=== PATIENT | female | born 1970 | race Caucasian/White ===

== ENCOUNTER 2023-11-25 05:21 | Inpatient (IN) ==
[2023-11-25] MEDS ORDERED: HYDROmorphone INJ 1 MG/ML SYRINGE IV STA ×4 (05:50→08:43)
[2023-11-25] MEDS ORDERED: ONDANSETRON INJ 2 MG/ML 2 ML VIAL IV STA ×2 (05:50→07:14)
[2023-11-25] MEDS ORDERED: KETOROLAC 30 MG/ML VIAL IV ONE (05:50)
[2023-11-25 06:10] LABS: Basophils # (auto) 0.03 K/uL (0.00-0.20); Basophils % (auto) 0.2 %; Eosinophils # (auto) 0.04 K/uL (0.00-0.50); Eosinophils % (auto) 0.3 %; Hematocrit (blood only) 38.7 % (37.0-47.0); Hemoglobin 12.5 g/dl (12.0-16.0); Immature Granulocytes # (auto) 0.08 K/uL (0.01-0.20); Immature Granulocytes % (auto) 0.5 %; Lymphocytes # (auto) 2.16 K/uL (1.20-3.40); Lymphocytes % (auto) 14.3 %; Mean Corpuscular Hemoglobin 28.3 pg (25.0-34.0); Mean Corpuscular Hgb Conc 32.3 g/dL (32.0-36.0); Mean Corpuscular Volume 87.8 fL (80.0-100.0); Mean Platelet Volume 9.4 fL (9.4-12.4); Monocytes # (auto) 0.81 K/uL (0.11-0.59); Monocytes % (auto) 5.3 %; Neutrophils # (auto) 12.03 K/uL (1.40-6.50); Neutrophils % (auto) 79.4 %; Platelet Count 291 K/uL (130-400); RDW Coefficient of Variation 12.3 % (11.5-14.5); RDW Standard Deviation 39.8 fL (36.4-46.3); Red Blood Count 4.41 M/uL (4.20-5.40); White Blood Count 15.15 K/ul (4.8-10.8)
[2023-11-25 06:27] LABS: Albumin Level 4.5 gm/dl (3.4-5.0); BUN Creatinine Ratio 14.3 (10-20); Bilirubin Direct 0.1 mg/dl (0-0.2); Bilirubin,Total 0.6 mg/dl (0.2-1.0); Calcium 9.9 mg/dl (8.6-10.3); Creatinine Clr Calc Pharmacy 93.6 ml/min; Est GFR (African American) 76.9 ml/min; Est GFR (Non-African American) 66.3 ml/min; Magnesium 1.6 mg/dl (1.7-2.4); Potassium 4.2 mmol/L (3.5-5.1); Total Protein 7.5 gm/dl (6.0-8.3)
--- OUTSIDE RECORDS SUMMARY | 2023-11-25 06:29 | External Medical Summary | Continuity of Care Document ---
Author Name [facility] [place] Address [address] [place] [address] Phone [phone] [facility], Address [address] [place] [address] Phone [phone] Social History Type Date Description Comments Sex Unknown Tobacco Use Reviewed: 06/09/23 Never Smoked Cigarette s Tobacco Use Reviewed: 06/09/23 Never Smoked Cigars Tobacco Use Reviewed: 06/09/23 Never Smoked A Pipe Smoking Status Reviewed: 06/09/23 Never Smoked A Pipe Smokeless Tobacco 06/09/2023 Never Used Smokeless To bacco Allergies and adverse reactions Active Allergies Criticality Reaction | Severity Comments Date Penicillin Unable to assess criticality Urticaria 01/28/2018 Amoxicillin Unable to assess criticality Urticaria 01/28/2018 Medications Active Medications SIG Qnty Indications Ordering Provider Date Tpdzpraqzh357yt Capsules 1 by mouth three times a day for pain 270nubia sEposito MD 09/07/2023 [address]pi Tablets DR Take 1 Tablet By Mouth Twice Daily 180rayo Esposito MD 01/28/2018 Metoprolol Mbiizemd19af Tablets Take 1 Tablet By Mouth Twice Daily 180rayo Esposito MD 09/28/2017 History Medications Hnzgafvevy615gt Capsules 1 by mouth thre e times a day for pain 270nubia Esposito MD 07/06/2023 - 09/07/2023 Ghezdbawgt28qp Tablets two tablets x 5 days then one tablet daily x 5 days 15rayo Esposito MD 06/09/2023 - 06/19/2023 Medications Administered in Office Medication SIG Qnty Indications Ordering Provider Date Injection Kenalog 10 MG [facility] [id number] Amanda Ching 06/09/2023 Immunizations CPT Code Status Date Vaccine Lot # [id number] Refused 06/09/2023 Influenza Virus Vaccine, Quadrivalent (Cciiv4), Derived From Cell 96497 Refused 06/09/2023 Influenza Virus Vaccine, Quadrivalent (Cciiv4), Derived From Cell 25157 Refused 06/09/2023 Shingrix 13965 Refused 04/16/2022 Moderna Sars-Co v-2 (Cov-19) vacc,100 mcg/ 0.5 mL 12Y+EMR Doc Only 52644 Refused 04/16/2022 Influenza Virus Vaccine, Quadrivalent (Cciiv4), Derived From Cell 21470 Refused 10/06/2018 Influenza Vacci ne Quadrivalent Preser/Antibiotic Free Im Use Vital Signs Date Vital Result Comment 06/09/2023 2:01pm BP Systolic 120 mmHg BP Diastolic 82 mmHg Body Temperature 97.3 F Heart Rate 86 /min Weight 272.00 lb Weight 123.379 kg Height 66 inches 5'6" BMI (Body Mass Index) 43.9 kg/m2 O2 % BldC Oximetry 98 % [place] Body Weight 130 lb 12/29/2022 2:43pm BP Systolic 122 mmHg BP Diastolic 82 mmHg Body Temperature 97.5 F Heart Rate 97 /min Respiratory Rate 14 /min Weight 277.00 lb Weight 125.647 kg Height 66 inches 5'6" BMI (Body Mass Index) 44.7 kg/m2 O2 % BldC Oximetry 98 % [place] Body Weight 130 lb Results Test Acquired Date Facility Test Result H/L Range N ote CBC W/Diff 09/17/2023 [facility] Lab. [address] [place] [address] [phone] WBC 6.8 10^3/M3 3.1-9.2 RBC 4.21 10^6/M3 3.70-5.50 HGB 12.7 GR/DL 11.5-16.1 HCT 38.9 % 34.5-47.8 MCV 92.4 CUMICR 82.6-95.8 MCH 30.1 PICOGR 27.9-32.9 MCHC 32.6 % 32.6-35.4 RDW 14.9 % High 11.4-14.6 PLT 292 10^3/M3 140-350 MPV 8.4 CUMICR 7.0-10.6 %Neut 57.3 % 40.0-75.0 %Lymph 38.6 % 17.0-45.0 %[place] 2.5 % 1.0-11.0 %Eos 1.2 % 0.0-6.0 %Baso 0.4 % 0.0-2.0 #Neut 3.9 10^3/M3 1.5-8.0 #Lymph 2.6 10^3/M3 0.8-3.2 #Porter 0.2 10^3/M3 0.0-0.8 #Eos 0.1 10^3/m3 0.0-0.4 #Baso 0.0 10^3/m3 0.0-0.2 Comp. Met 09/17/2023 [facility] Lab. [address] [place] [address] [phone] Glucose 145 mg/dL High 70-110 1 BUN 19 mg/dL 6-25 Creatinine 0.8 mg/dL 0.5-1.2 Sodium 142 mEq/L 135-145 Potassium 3.9 mEq/L 3.5-5.0 Chloride 105 mEq/L 95-107 Co-2 26 mEq/L 24-31 Alk Phos 58 IU/L 43-122 Alt(SGPT) 24 IU/L 10-40 Ast(Sgot) 16 IU/L 3-42 T.Bilirubin 0.4 mg/dL 0.1-1.3 Calcium 9.4 mg/dL 8.5-10.6 Tot.Protein 6.6 g/dL 5.8-8.0 Albumin 4.2 g/dL 3.0-5.2 Globulin 2.4 g/dL 2.0-3.4 GFR 80 ML/MIN/1.73SQM >60 PT Inr DRAGLINE OILER 09/17/2023 [facility] Lab. [address] [place] [address] [phone] PT 13.1 SEC High 10.0-12.4 2 Inr 1.2 RATIO Hba1c 09/17/2023 [facility] Lab. [address] [place] [address] [phone] A1c 5.90 % 4.70-6.50 3 1 REPORT FAXED TO DOCT OR, REQUESTED ON REQUISITION.09/18/23 lm 2 NORMAL PATIENT CONTR OL IS 11.0 INR REFERENCE RANGES: PROPHYLAXIS IN CARDIC DISEASE 2.0-3.0 PROSTHETIC HEART VALVE 3.0-4.5 RECURRENT EMBOLISM 3.0-4.5 PROPHLAXIS IN HIGH RISK SURGERY 2.0-2.5 TREATMENT IN PULMONARY EMBOLIS 2.0-3.0 3 MEAN GLUCOSE IN mg/d L/A1c% POOR CONTROL FAIR CONTROL GOOD CONTROL EXCELLENT CONTROL 360-14 210-9 180-8 120-6 330-13 150-7 90-5 300-12 270-11 240-10 Procedures Date Code Description Status 09/17/2023 02645 Electrocardiogram Complete C ompleted 09/17/2023 84141 Venipuncture Routine Complet ed 06/09/2023 J3301 Injection Kenalog 10 MG [facility] [id number] Completed 06/09/2023 91616 Inject/Drain Arthrocentesis Major Joint/Bursa Completed Medical Devices Description No Information Available Encounters Type Date Location Provider Dx Diagnosis Office Visit 06/09/2023 2:30p [place] Sj Milner PA-C M70.61 Trochanteric bursitis, right hip M51.16 Intervertebral disc disorders w radiculopathy, lumbar region Assessments Date Code Description Provider 09/17/2023 Z01.818 Encounter for ot her preprocedural examination Rubina Esposito MD 09/17/2023 Z01.818 Encounter for ot her preprocedural examination [facility] [place] 06/09/2023 M70.61 Trochanteric bursitis, right hip Sj Milner PA-C 06/09/2023 M51.16 Intervertebral d isc disorders with radiculopathy, lumbar region Sj Milner PA-C Plan of Treatment Future Appointment(s):* 12/07/2023 8:30 am - Sj Milner PA-C at [place] 06/09/2023 - Sj Milner PA-C* M70.61 Trochanteric bursitis, right hip* Comments:* Consider imaging Continue conservative treatment Complete corticosteroid taper Continue NSAIDs as needed * M51.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
--- OUTSIDE RECORDS SUMMARY | 2023-11-25 06:29 | External Medical Summary | Continuity of Care Document ---
Author Name DENISHA BARBER Address [address] [place] [address] Phone [phone] [facility] Address [address] [place] [address] Phone [phone] Social History Type Date Description Comments Sex [...] Medications SIG Qnty Indications Ordering Provider Date Fcnxgsmuex43te Tablets two tablets x 5 days then one tablet daily x 5 days 15tabs Rubina Esposito MD 06/09/2023 - 06/19/2023 [address]lof[address]kktbj02mt Tablets DR Take 1 Tablet By Mouth Twice Daily 180tabs Rubina Esposito MD 01/28/2018 Metoprolol Uhwnswlz88kc Tablets Take 1 Tablet By Mouth Twice Daily 180tabs Rubina Esposito MD 09/28/2017 Medications Administered in Office Medication SIG Qnty Indications Ordering Provider Date Injection Kenalog 10 MG [facility] [id number] Amanda Ching 06/09/2023 Immunizations CPT Code Status Date Vaccine Lot # [id number] Refused 06/09/2023 Influenza Virus Vaccine, Quadrivalent (Cciiv4), Derived From Cell 27214 Refused 06/09/2023 Influenza Virus Vaccine, Quadrivalent (Cciiv4), Derived From Cell 77388 Refused 06/09/2023 Shingrix 44471 Refused 04/16/2022 Moderna Sars-Co v-2 (Covid-19) vaccine, 100 mcg/ 0.5 mL 12Y+ 96148 Refused 04/16/2022 Influenza Virus Vaccine, Quadrivalent (Cciiv4), Derived From Cell 93102 Refused 10/06/2018 Influenza Vacci ne Quadrivalent Preser/Antibiotic Free Im Use Vital Signs Date Vital Result Comment 06/09/2023 2:01pm BP Systolic 120 mmHg BP Diastolic 82 mmHg Body Temperature 97.3 F Heart Rate 86 /min Weight 272.00 lb Weight 123.379 kg Height 66 inches 5'6" BMI (Body Mass Index) 43.9 kg/m2 O2 % BldC Oximetry 98 % [place] Body Weight 130 lb 12/29/2022 2:43pm BP Systolic 122 mmHg BP Diastolic 82 mmHg Body Temperature 97.5 F Heart Rate 97 /min Respiratory Rate 14 /min Weight 277.00 lb Weight 125.647 kg Height 66 inches 5'6" BMI (Body Mass Index) 44.7 kg/m2 O2 % BldC Oximetry 98 % [place] Body Weight 130 lb Procedures Date Code Description Status 06/09/2023 J3301 Injection Kenalog 10 MG [facility] [id number] Completed 06/09/2023 36046 Inject/Drain Arthrocentesis Major Joint/Bursa Completed 12/29/2022 27559 Remove Skin Tags Up To 15 Co mpleted Medical Devices Description No Information Available Encounters Type Date Location Provider Dx Diagnosis Office Visit 06/09/2023 2:30p [place] Denisha Barber PA-C M70.61 Trochanteric bursitis, right hip M51.16 Intervertebral disc disorders w radiculopathy, lumbar region Assessments Date Code Description Provider 06/09/2023 M70.61 Trochanteric bursitis, right hip Denisha Barber PA-C 06/09/2023 M51.16 Intervertebral d isc disorders with radiculopathy, lumbar region Denisha Barber PA-C 12/29/2022 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
--- OUTSIDE RECORDS SUMMARY | 2023-11-25 06:29 | External Medical Summary | Continuity of Care Document ---
Author Name [facility] [place] Address [address] [place] [address] Phone [phone] [facility], Address [address] [place] [address] Phone [phone] Social History Type Date Description Comments Sex [...] Medications SIG Qnty Indications Ordering Provider Date Znqmmbpkle236ei Capsules 1 by mouth three times a day for pain 270nubia Esposito MD 09/07/2023 Diclofenac Npjrzl81wv Tablets DR Take 1 Tablet By Mouth Twice Daily 180rayo Esposito MD 01/28/2018 Metoprolol Usbkbpcb30af Tablets Take 1 Tablet By Mouth Twice Daily 180rayo Esposito MD 09/28/2017 History Medications Mielnnwork436je Capsules 1 by mouth thre e times a day for pain 270nubia Esposito MD 07/06/2023 - 09/07/2023 Vohnwcaous91da Tablets two tablets x 5 days then one tablet daily x 5 days 15rayo Esposito MD 06/09/2023 - 06/19/2023 Medications Administered in Office Medication SIG Qnty Indications Ordering Provider Date Injection Kenalog 10 MG [facility] [id number] Amanda Ching 06/09/2023 Immunizations CPT Code Status Date Vaccine Lot # 24691 Refused 06/09/2023 Influenza Virus Vaccine, Quadrivalent (Cciiv4), Derived From Cell 04205 Refused 06/09/2023 Influenza Virus Vaccine, Quadrivalent (Cciiv4), Derived From Cell 83956 Refused 06/09/2023 Shingrix 21857 Refused 04/16/2022 Moderna Sars-Co v-2 (Cov-19) vacc,100 mcg/ 0.5 mL 12Y+EMR Doc Only 14558 Refused 04/16/2022 Influenza Virus Vaccine, Quadrivalent (Cciiv4), Derived From Cell 56542 Refused 10/06/2018 Influenza Vacci ne Quadrivalent Preser/Antibiotic Free Im Use Vital Signs Date Vital Result Comment 06/09/2023 2:01pm BP Systolic 120 mmHg BP Diastolic 82 mmHg Body Temperature 97.3 F Heart Rate 86 /min Weight 272.00 lb Weight 123.379 kg Height 66 inches 5'6" BMI (Body Mass Index) 43.9 kg/m2 O2 % BldC Oximetry 98 % [place] Body Weight 130 lb 12/29/2022 2:43pm BP Systolic 122 mmHg BP Diastolic 82 mmHg Body Temperature 97.5 F Heart Rate 97 /min Respiratory Rate 14 /min Weight 277.00 lb Weight 125.647 kg Height 66 inches 5'6" BMI (Body Mass Index) 44.7 kg/m2 O2 % BldC Oximetry 98 % [place] Body Weight 130 lb Results Test Acquired Date Facility Test Result H/L Range N ote CBC W/Diff 09/17/2023 [facility] Lab. [address] [place] [address] [phone] WBC 6.8 10^3/M3 3.1-9.2 RBC 4.21 10^6/M3 3.70-5.50 HGB 12.7 GR/DL 11.5-16.1 HCT 38.9 % 34.5-47.8 MCV 92.4 CUMICR 82.6-95.8 MCH 30.1 PICOGR 27.9-32.9 MCHC 32.6 % 32.6-35.4 RDW 14.9 % High 11.4-14.6 PLT 292 10^3/M3 140-350 MPV 8.4 CUMICR 7.0-10.6 %Neut 57.3 % 40.0-75.0 %Lymph 38.6 % 17.0-45.0 %[place] 2.5 % 1.0-11.0 %Eos 1.2 % 0.0-6.0 %Baso 0.4 % 0.0-2.0 #Neut 3.9 10^3/M3 1.5-8.0 #Lymph 2.6 10^3/M3 0.8-3.2 #[place] 0.2 10^3/M3 0.0-0.8 #Eos 0.1 10^3/m3 0.0-0.4 #Baso 0.0 10^3/m3 0.0-0.2 Comp. Met 09/17/2023 [facility] Lab. [address] [place] [address] [phone] Glucose 145 mg/dL High 70-110 1 BUN [...] 2.0-3.4 GFR 80 ML/MIN/1.73SQM >60 PT Inr PIZZA DELIVERY 09/17/2023 [facility] Lab. [address] [place] [address] [phone] PT 13.1 SEC High 10.0-12.4 2 Inr 1.2 RATIO Hba1c 09/17/2023 [facility] Lab. [address] [place] [address] [phone] A1c 5.90 % 4.70-6.50 3 1 REPORT [...] 240-10 Procedures Date Code Description Status 09/17/2023 92689 Electrocardiogram Complete C ompleted 09/17/2023 72024 Venipuncture Routine Complet ed 06/09/2023 J3301 Injection Kenalog 10 MG [facility] [id number] Completed 06/09/2023 87243 Inject/Drain Arthrocentesis Major Joint/Bursa Completed Medical Devices Description No Information Available Encounters Type Date Location Provider Dx Diagnosis Office Visit 06/09/2023 2:30p [place] Sj Milner PA-C M70.61 Trochanteric bursitis, right hip M51.16 Intervertebral disc disorders w radiculopathy, lumbar region Assessments Date Code Description Provider 09/17/2023 Z01.818 Encounter for ot her preprocedural examination Rubina Esposito MD 09/17/2023 Z01.818 Encounter for ot her preprocedural examination [facility] [place] 06/09/2023 M70.61 Trochanteric bursitis, right hip Sj Milner PA-C 06/09/2023 M51.16 Intervertebral d isc disorders with radiculopathy, lumbar region Sj Milner PA-C Plan of Treatment Future Appointment(s):* 12/07/2023 8:30 am - Sj Milner PA-C at [place] 06/09/2023 - Sj Milner PA-C* M70.61 Trochanteric [...]
--- OUTSIDE RECORDS SUMMARY | 2023-11-25 06:29 | External Medical Summary | Continuity of Care Document ---
Author Name [facility] [place] Address [address] [place] [address] Phone [phone] [facility], Address [address] [place] [address] Phone [phone] Social History Type Date Description Comments Sex [...] Medications SIG Qnty Indications Ordering Provider Date Bxuylvwrrf027la Capsules 1 by mouth three times a day for pain 270nubia Esposito MD 09/07/[address] Take 1 Tablet By Mouth Twice Daily 180rayo Esposito MD 01/28/2018 Metoprolol Rloqpggx48ty Tablets Take 1 Tablet By Mouth Twice Daily 180rayo Esposito MD 09/28/2017 History Medications Zckxszcpfj924yy Capsules 1 by mouth thre e times a day for pain 270nubia Esposito MD 07/06/2023 - 09/07/2023 Xvjqunefxc46bu Tablets two tablets x 5 days then one tablet daily x 5 days 15rayo Esposito MD 06/09/2023 - 06/19/2023 Medications Administered in Office Medication SIG Qnty Indications Ordering Provider Date Injection Kenalog 10 MG [facility] [id number] Amanda Ching 06/09/2023 Immunizations CPT Code Status Date Vaccine Lot # 71058 Refused 06/09/2023 Influenza Virus Vaccine, Quadrivalent (Cciiv4), Derived From Cell 48974 Refused 06/09/2023 Influenza Virus Vaccine, Quadrivalent (Cciiv4), Derived From Cell 46625 Refused 06/09/2023 Shingrix 52519 Refused 04/16/2022 Moderna Sars-Co v-2 (Cov-19) vacc,100 mcg/ 0.5 mL 12Y+EMR Doc Only 13792 Refused 04/16/2022 Influenza Virus Vaccine, Quadrivalent (Cciiv4), Derived From Cell 68037 Refused 10/06/2018 Influenza Vacci ne Quadrivalent Preser/Antibiotic Free Im Use Vital Signs Date Vital Result Comment 06/09/2023 2:01pm BP Systolic 120 mmHg BP Diastolic 82 mmHg Body Temperature 97.3 F Heart Rate 86 /min Weight 272.00 lb Weight 123.379 kg Height 66 inches 5'6" BMI (Body Mass Index) 43.9 kg/m2 O2 % BldC Oximetry 98 % [place] Body Weight 130 lb 12/29/2022 2:43pm BP Systolic 122 mmHg BP Diastolic 82 mmHg Body Temperature 97.5 F Heart Rate 97 /min Respiratory Rate 14 /min Weight 277.00 lb Weight 125.647 kg Height 66 inches 5'6" BMI (Body Mass Index) 44.7 kg/m2 O2 % BldC Oximetry 98 % [place] Body Weight 130 lb Procedures Date Code Description Status 09/17/2023 33141 Electrocardiogram Complete C ompleted 09/17/2023 44889 Venipuncture Routine Complet ed 06/09/2023 J3301 Injection Kenalog 10 MG [place] [id number] Completed 06/09/2023 04292 Inject/Drain Arthrocentesis Major Joint/Bursa Completed Medical Devices Description No Information Available Encounters Type Date Location Provider Dx Diagnosis Office Visit 06/09/2023 2:30p [place] PA-C M70.61 Trochanteric bursitis, right hip M51.16 Intervertebral disc disorders w radiculopathy, lumbar region Assessments Date Code Description Provider 09/17/2023 Z01.818 Encounter for ot her preprocedural examination [facility] - [place] 06/09/2023 M70.61 Trochanteric bursitis, right hip Sj Milner PA-C 06/09/2023 M51.16 Intervertebral d isc disorders with radiculopathy, lumbar region Sj Milner PA-C Plan of Treatment Future Appointment(s):* 12/07/2023 8:30 am - Sj Milner PA-C at [place] 06/09/2023 - Sj Milner PA-C* M70.61 Trochanteric [...]
--- OUTSIDE RECORDS SUMMARY | 2023-11-25 06:29 | External Medical Summary | Continuity of Care Document ---
Author Name DENISHA BARBER Address [address] [place] [address] Phone [phone] [facility] Address [address] [place] [address] Phone [phone] Social History Type Date Description Comments Sex [...] Medications SIG Qnty Indications Ordering Provider Date Fsavxspqdj83nh Tablets two tablets x 5 days then one tablet daily x 5 days 15tabs Rubina Esposito MD 06/09/2023 - 06/19/2023 [address]uy Tablets DR Take 1 Tablet By Mouth Twice Daily 180tabs Rubina Esposito MD 01/28/2018 Metoprolol Rnjewzjb69ia Tablets Take 1 Tablet By Mouth Twice Daily 180tabs Rubina Esposito MD 09/28/2017 Medications Administered in Office Medication SIG Qnty Indications Ordering Provider Date Injection Kenalog 10 MG [facility] [id number] Amanda Ching 06/09/2023 Immunizations CPT Code Status Date Vaccine Lot # 16675 Refused 06/09/2023 Influenza Virus Vaccine, Quadrivalent (Cciiv4), Derived From Cell 25220 Refused 06/09/2023 Influenza Virus Vaccine, Quadrivalent (Cciiv4), Derived From Cell 12436 Refused 06/09/2023 Shingrix 56541 Refused 04/16/2022 Moderna Sars-Co v-2 (Covid-19) vaccine, 100 mcg/ 0.5 mL 12Y+ 66633 Refused 04/16/2022 Influenza Virus Vaccine, Quadrivalent (Cciiv4), Derived From Cell 39608 Refused 10/06/2018 Influenza Vacci ne Quadrivalent Preser/Antibiotic Free Im Use Vital Signs Date Vital Result Comment 06/09/2023 2:01pm BP Systolic 120 mmHg BP Diastolic 82 mmHg Body Temperature 97.3 F Heart Rate 86 /min Weight 272.00 lb Weight 123.379 kg Height 66 inches 5'6" BMI (Body Mass Index) 43.9 kg/m2 O2 % BldC Oximetry 98 % [place] Body Weight 130 lb 12/29/2022 2:43pm BP Systolic 122 mmHg BP Diastolic 82 mmHg Body Temperature 97.5 F Heart Rate 97 /min Respiratory Rate 14 /min Weight 277.00 lb Weight 125.647 kg Height 66 inches 5'6" BMI (Body Mass Index) 44.7 kg/m2 O2 % BldC Oximetry 98 % [place] Body Weight 130 lb Procedures Date Code Description Status 06/09/2023 J3301 Injection Kenalog 10 MG [facility] 77017526084 Completed 06/09/2023 01026 Inject/Drain Arthrocentesis Major Joint/Bursa Completed 12/29/2022 69909 Remove Skin Tags Up To 15 Co mpleted Medical Devices Description No Information Available Encounters Type Date Location Provider Dx Diagnosis Office Visit 06/09/2023 2:30p [place] Denisha Barber PA-C M70.61 Trochanteric bursitis, right [...] 8:30 am - Denisha Barber PA-C at [place] 06/09/2023 - Denisha Barber PA-C* M70.61 Trochanteric [...]
--- OUTSIDE RECORDS SUMMARY | 2023-11-25 06:29 | External Medical Summary | Continuity of Care Document ---
Author Name [facility] - [place] Address [address] [place] [address] Phone [phone] [facility], Address [address] [place] [address] Phone [phone] Social History Type Date Description Comments Sex [...] Medications SIG Qnty Indications Ordering Provider Date Qamggnktpq439uh Capsules 1 by mouth three times a day for pain 270nubia Esposito MD 09/07/2023 [address]ayg57qd Table[address] DR Take 1 Tablet By Mouth Twice Daily 180rayo Esposito MD 01/28/2018 Metoprolol Hcojgidi43tm Tablets Take 1 Tablet By Mouth Twice Daily 180rayo Esposito MD 09/28/2017 History Medications Yrvpuqyzpi453ph Capsules 1 by mouth thre e times a day for pain 270nubia Esposito MD 07/06/2023 - 09/07/2023 Gqmlfpytve45mo Tablets two tablets x 5 days then one tablet daily x 5 days 15rayo Esposito MD 06/09/2023 - 06/19/2023 Medications Administered in Office Medication SIG Qnty Indications Ordering Provider Date Injection Kenalog 10 MG [facility] [id number] Amanda Ching 06/09/2023 Immunizations CPT Code Status Date Vaccine Lot # 38217 Refused 06/09/2023 Influenza Virus Vaccine, Quadrivalent (Cciiv4), Derived From Cell 95977 Refused 06/09/2023 Influenza Virus Vaccine, Quadrivalent (Cciiv4), Derived From Cell 73088 Refused 06/09/2023 Shingrix 74273 Refused 04/16/2022 Moderna Sars-Co v-2 (Cov-19) vacc,100 mcg/ 0.5 mL 12Y+EMR Doc Only 77585 Refused 04/16/2022 Influenza Virus Vaccine, Quadrivalent (Cciiv4), Derived From Cell 97818 Refused 10/06/2018 Influenza Vacci ne Quadrivalent Preser/Antibiotic Free Im Use Vital Signs Date Vital Result Comment 06/09/2023 2:01pm BP Systolic 120 mmHg BP Diastolic 82 mmHg Body Temperature 97.3 F Heart Rate 86 /min Weight 272.00 lb Weight 123.379 kg Height 66 inches 5'6" BMI (Body Mass Index) 43.9 kg/m2 O2 % BldC Oximetry 98 % [place] Body Weight 130 lb 12/29/2022 2:43pm BP Systolic 122 mmHg BP Diastolic 82 mmHg Body Temperature 97.5 F Heart Rate 97 /min Respiratory Rate 14 /min Weight 277.00 lb Weight 125.647 kg Height 66 inches 5'6" BMI (Body Mass Index) 44.7 kg/m2 O2 % BldC Oximetry 98 % [place] Body Weight 130 lb Procedures Date Code Description Status 09/17/2023 92368 Electrocardiogram Complete C ompleted 09/17/2023 06921 Venipuncture Routine Complet ed 06/09/2023 J3301 Injection Kenalog 10 MG ND [id number] Completed 06/09/2023 55992 Inject/Drain Arthrocentesis Major Joint/Bursa Completed Medical Devices Description No Information Available Encounters Type Date Location Provider Dx Diagnosis Office Visit 06/09/2023 2:30p [place] PA-C M70.61 Trochanteric bursitis, right hip M51.16 Intervertebral disc disorders w radiculopathy, lumbar region Assessments Date Code Description Provider 09/17/2023 Z01.818 Encounter for ot her preprocedural examination [facility] - [place] 06/09/2023 M70.61 Trochanteric bursitis, right hip Sj Milner PA-C 06/09/2023 M51.16 Intervertebral d isc disorders with radiculopathy, lumbar region Sj Milner PA-C Plan of Treatment Future Appointment(s):* 12/07/2023 8:30 am - Sj Milner PA-C at [place] 06/09/2023 - Sj Milner PA-C* M70.61 Trochanteric [...]
--- OUTSIDE RECORDS SUMMARY | 2023-11-25 06:29 | External Medical Summary | Continuity of Care Document ---
Author Name DENISHA BARBER Address [address] [place] [address] Phone [phone] [facility] Address [address] [place] [address] Phone [phone] Social History Type Date Description Comments Sex [...] Medications SIG Qnty Indications Ordering Provider Date Ehrmhddiou20iv Tablets two tablets x 5 days then one tablet daily x 5 days 15tabs Rubina Esposito MD 06/09/2023 - 06/19/[address] Take 1 Tablet By Mouth Twice Daily 180tabs Rubina Esposito MD 01/28/2018 Metoprolol Pkutbvqu68hv Tablets Take 1 Tablet By Mouth Twice Daily 180tabs Rubina Esposito MD 09/28/2017 Medications Administered in Office Medication SIG Qnty Indications Ordering Provider Date Injection Kenalog 10 MG [facility] [id number] Amanda Ching 06/09/2023 Immunizations CPT Code Status Date Vaccine Lot # [id number] Refused 06/09/2023 Influenza Virus Vaccine, Quadrivalent (Cciiv4), Derived From Cell [id number] Refused 06/09/2023 Influenza Virus Vaccine, Quadrivalent (Cciiv4), Derived From Cell 71457 Refused 06/09/2023 Shingrix 05602 Refused 04/16/2022 Moderna Sars-Co v-2 (Covid-19) vaccine, 100 mcg/ 0.5 mL 12Y+ [id number] Refused 04/16/2022 Influenza Virus Vaccine, Quadrivalent (Cciiv4), Derived From Cell 67869 Refused 10/06/2018 Influenza Vacci ne Quadrivalent Preser/Antibiotic Free Im Use Vital Signs Date Vital Result Comment 06/09/2023 2:01pm BP Systolic 120 mmHg BP Diastolic 82 mmHg Body Temperature 97.3 F Heart Rate 86 /min Weight 272.00 lb Weight 123.379 kg Height 66 inches 5'6" BMI (Body Mass Index) 43.9 kg/m2 O2 % BldC Oximetry 98 % [place] Body Weight 130 lb 12/29/2022 2:43pm BP Systolic 122 mmHg BP Diastolic 82 mmHg Body Temperature 97.5 F Heart Rate 97 /min Respiratory Rate 14 /min Weight 277.00 lb Weight 125.647 kg Height 66 inches 5'6" BMI (Body Mass Index) 44.7 kg/m2 O2 % BldC Oximetry 98 % [place] Body Weight 130 lb Procedures Date Code Description Status 06/09/2023 J3301 Injection Kenalog 10 MG [facility] [id number] Completed 06/09/2023 11108 Inject/Drain Arthrocentesis Major Joint/Bursa Completed 12/29/2022 68530 Remove Skin Tags Up To 15 Co mpleted Medical Devices Description No Information Available Encounters Type Date Location Provider Dx Diagnosis Office Visit 06/09/2023 2:30p [place] Denisha Barber PA-C M70.61 Trochanteric bursitis, right [...] 8:30 am - Denisha Barber PA-C at [place] 06/09/2023 - Denisha Barber PA-C* M70.61 Trochanteric [...]
--- OUTSIDE RECORDS SUMMARY | 2023-11-25 06:29 | External Medical Summary | Continuity of Care Document ---
Author Name DENISHA BARBER Address [address] [place] [address] Phone [phone] [facility] Address [address] [place] [address] Phone [phone] Social History Type Date Description Comments Sex [...] Medications SIG Qnty Indications Ordering Provider Date Ltjjhwwyjn79cv Tablets two tablets x 5 days then one tablet daily x 5 days 15tabs Rubina Esposito MD 06/09/2023 - 06/19/[address] Take 1 Tablet By Mouth Twice Daily 180tabs Rubina Esposito MD 01/28/2018 Metoprolol Pstlvowa78cy Tablets Take 1 Tablet By Mouth Twice Daily 180tabs Rubina Esposito MD 09/28/2017 Medications Administered in Office Medication SIG Qnty Indications Ordering Provider Date Injection Kenalog 10 MG [facility] [id number] Amanda Ching 06/09/2023 Immunizations CPT Code Status Date Vaccine Lot # [id number] Refused 06/09/2023 Influenza Virus Vaccine, Quadrivalent (Cciiv4), Derived From Cell 10459 Refused 06/09/2023 Influenza Virus Vaccine, Quadrivalent (Cciiv4), Derived From Cell 57319 Refused 06/09/2023 Shingrix 91458 Refused 04/16/2022 Moderna Sars-Co v-2 (Covid-19) vaccine, 100 mcg/ 0.5 mL 12Y+ [id number] Refused 04/16/2022 Influenza Virus Vaccine, Quadrivalent (Cciiv4), Derived From Cell 78581 Refused 10/06/2018 Influenza Vacci ne Quadrivalent Preser/Antibiotic Free Im Use Vital Signs Date Vital Result Comment 06/09/2023 2:01pm BP Systolic 120 mmHg BP Diastolic 82 mmHg Body Temperature 97.3 F Heart Rate 86 /min Weight 272.00 lb Weight 123.379 kg Height 66 inches 5'6" BMI (Body Mass Index) 43.9 kg/m2 O2 % BldC Oximetry 98 % [place] Body Weight 130 lb 12/29/2022 2:43pm BP Systolic 122 mmHg BP Diastolic 82 mmHg Body Temperature 97.5 F Heart Rate 97 /min Respiratory Rate 14 /min Weight 277.00 lb Weight 125.647 kg Height 66 inches 5'6" BMI (Body Mass Index) 44.7 kg/m2 O2 % BldC Oximetry 98 % [place] Body Weight 130 lb Procedures Date Code Description Status 06/09/2023 J3301 Injection Kenalog 10 MG [facility] [id number] Completed 06/09/2023 62869 Inject/Drain Arthrocentesis Major Joint/Bursa Completed 12/29/2022 92422 Remove Skin Tags Up To 15 Co mpleted Medical Devices Description No Information Available Encounters Type Date Location Provider Dx Diagnosis Office Visit 06/09/2023 2:30p [place] Denisha Barber PA-C M70.61 Trochanteric bursitis, right [...] 8:30 am - Denisha Barber PA-C at [place] 06/09/2023 - Denisha Barber PA-C* M70.61 Trochanteric [...]
--- OUTSIDE RECORDS SUMMARY | 2023-11-25 06:29 | External Medical Summary | Continuity of Care Document ---
Author Name [facility] [place] Address [address] [place] [address] Phone [phone] [facility], Address [address] [place] [address] Phone [phone] Social History Type Date Description Comments Sex [...] Medications SIG Qnty Indications Ordering Provider Date Twclgrabkk584es Capsules 1 by mouth three times a day for pain 270nubia Esposito MD 09/07/[address] Take 1 Tablet By Mouth Twice Daily 180rayo Esposito MD 01/28/2018 Metoprolol Qyxjnmif50ca Tablets Take 1 Tablet By Mouth Twice Daily 180rayo Esposito MD 09/28/2017 History Medications Arulhbgvle276fa Capsules 1 by mouth thre e times a day for pain 270nubia Esposito MD 07/06/2023 - 09/07/2023 Ohjahuzbws78bf Tablets two tablets x 5 days then one tablet daily x 5 days 15rayo Esposito MD 06/09/2023 - 06/19/2023 Medications Administered in Office Medication SIG Qnty Indications Ordering Provider Date Injection Kenalog 10 MG [facility] [id number] Amanda Ching 06/09/2023 Immunizations CPT Code Status Date Vaccine Lot # [id number] Refused 06/09/2023 Influenza Virus Vaccine, Quadrivalent (Cciiv4), Derived From Cell 47600 Refused 06/09/2023 Influenza Virus Vaccine, Quadrivalent (Cciiv4), Derived From Cell 17685 Refused 06/09/2023 Shingrix 00805 Refused 04/16/2022 Moderna Sars-Co v-2 (Cov-19) vacc,100 mcg/ 0.5 mL 12Y+EMR Doc Only [id number] Refused 04/16/2022 Influenza Virus Vaccine, Quadrivalent (Cciiv4), Derived From Cell 48636 Refused 10/06/2018 Influenza Vacci ne Quadrivalent Preser/Antibiotic Free Im Use Vital Signs Date Vital Result Comment 06/09/2023 2:01pm BP Systolic 120 mmHg BP Diastolic 82 mmHg Body Temperature 97.3 F Heart Rate 86 /min Weight 272.00 lb Weight 123.379 kg Height 66 inches 5'6" BMI (Body Mass Index) 43.9 kg/m2 O2 % BldC Oximetry 98 % [place] Body Weight 130 lb 12/29/2022 2:43pm BP Systolic 122 mmHg BP Diastolic 82 mmHg Body Temperature 97.5 F Heart Rate 97 /min Respiratory Rate 14 /min Weight 277.00 lb Weight 125.647 kg Height 66 inches 5'6" BMI (Body Mass Index) 44.7 kg/m2 O2 % BldC Oximetry 98 % [place] Body Weight 130 lb Procedures Date Code Description Status 09/17/2023 58444 Electrocardiogram Complete C ompleted 09/17/2023 30502 Venipuncture Routine Complet ed 06/09/2023 J3301 Injection Kenalog 10 MG ND [id number] Completed 06/09/2023 06037 Inject/Drain Arthrocentesis Major Joint/Bursa Completed Medical Devices Description No Information Available Encounters Type Date Location Provider Dx Diagnosis Office Visit 06/09/2023 2:30p [place] PA-C M70.61 Trochanteric bursitis, right hip M51.16 Intervertebral disc disorders w radiculopathy, lumbar region Assessments Date Code Description Provider 09/17/2023 Z01.818 Encounter for ot her preprocedural examination [facility] [place] 06/09/2023 M70.61 Trochanteric bursitis, right hip Sj Milner PA-C 06/09/2023 M51.16 Intervertebral d isc disorders with radiculopathy, lumbar region Sj Milner PA-C Plan of Treatment Future Appointment(s):* 12/07/2023 8:30 am - Sj Milner PA-C at [place] 06/09/2023 - Sj Milner PA-C* M70.61 Trochanteric [...]
[2023-11-25] MEDS ORDERED: VANCOMYCIN HCL 2,500 MG in SODIUM CHLORIDE 0.9% 500 ML IV ONE (06:45)
[2023-11-25] MEDS ORDERED: VANCOMYCIN CONSULT ACTIVE PRN (06:45)
[2023-11-25] MEDS ORDERED: fentaNYL citrate PF 100 MCG/2 ML VIAL IV STA (06:45)
--- NOTE | 2023-11-25 06:51 | Emergency Department Note ---
Impression & Plan Acute pain of right hip Admit to the [facility] ED Provider Note NAME: FINA BROOKS AGE: 53 SEX: Female INFORMANT: Patient ED PROVIDER(S): Leni Dumas DO CHIEF COMPLAINT: Severe right hip pain PLAN: Disposition: Admit to the [facility] MEDICAL DECISION MAKING: This is a 53-year-old female patient presents to the emergency department with severe right hip pain. The patient underwent right hip arthroplasty with Dr. Lester 6 weeks ago and had a completely normal postoperative course. Patient states that the pain in her hip began last night and was completely unsolicited. She denies any trauma. Patient does state that she felt as if she was getting sick but denies any fever. Patient does describe having cold-like symptoms 2 days ago but they resolved. Laboratory studies here revealed white count of 15.1 with 79% neutrophils. H&H were stable. C-reactive protein was 2.71 and sed rate was 33. Procalcitonin was normal but lactate was significantly elevated at 3.5. Glucose was 162. I was concerned about the possibility of a septic joint and ordered blood cultures on the patient as well as IV vancomycin. There was also some concern for sepsis as the patient had an elevated white blood cell count and lactic acid. Although procalcitonin was normal and the patient was afebrile. She was bolused with a total of 2 L of normal saline solution and then a second lactic acid came back within the normal range. Patient's pain was severe and required multiple doses of IV opioids to include Dilaudid and fentanyl. Plain films of the right hip were negative. I discussed the case with Dr. Lester who performed the patient's surgery. He suggested admission to internal medicine with radiology to perform aspiration of the right hip joint. Care/management discussed with: Dr. Lester, graphic design manager, [facility] Triage Nursing notes: Reviewed and agree with them. Vital Signs: reviewed and unremarkable Additional History obtained from: The patient's who is at the bedside Differential Diagnosis: Acute septic joint, septic bursitis, sepsis, hardware dislocation Diagnostics, independently interpreted by me: ECG: Normal sinus rhythm at a rate of [address] segment elevation or signs of ischemia. There is no ectopy. Cardiac Monitoring: Normal sinus rhythm at a rate of 92 Imaging studies: Right hip/pelvis x-ray: No acute abnormality with the hardware. No fractures identified as per my independent interpretation HPI: 53 year old Female arrives for evaluation of severe right hip pain. Patient underwent hip arthroplasty 6 weeks ago. The pain was minimal with recovery from the surgery and the patient was doing fine until last night when she had a severe and sudden onset of right hip pain. The pain dramatically worsened with even the slightest movement of the hip. PAST MEDICAL HISTORY: Hypertension, chronic low back pain PAST SURGICAL HISTORY: Total hip arthroplasty, SOCIAL HISTORY: lives with her , HOME MEDICATIONS: See list ALLERGIES: See list VITALS: See Below PHYSICAL EXAMINATION: HEENT: Head - normocephalic and atraumatic. Pupils are equal, round, and reactive to light. Extraocular eye muscles are intact, and sclera are anicteric. Nose - moist nasal mucosa without discharge. Mouth - moist buccal mucosa. Oropharynx is nonerythematous and there is no tonsillar exudate or edema noted. Neck: Supple; no cervical lymphadenopathy appreciated Heart: Regular rate and rhythm. There is a normal S1 and S2 with no murmurs, clicks, or gallops appreciated. Lungs: Clear to auscultation bilaterally with no wheezes, rales, or rhonchi. Abdomen: Soft, completely nontender, nondistended, with good bowel sounds. There are no palpable pulsatile masses or hepatosplenomegaly. There is no guarding, rigidity, or rebound noted. Extremities: Surgical incision of the right hip appears well-healed with no surrounding erythema, edema or warmth. There is no pain to palpation in this area. There are easily palpable peripheral pulses. Patient does seem to have pain to palpation over the anterior aspect of the right hip/groin. Skin: warm and dry with good turgor and no rashes. Emergency department treatment: hospital monitor, IV normal saline bolus, IV Zofran, IV Toradol, IV Dilaudid, IV vancomycin, IV fentanyl, IV Dilaudid Emergency department course: The patient was evaluated in room B-A. A complete history and physical was performed. Septic protocol was performed. An order was placed for continuous cardiac monitoring. The patient was in a normal sinus rhythm at a rate of 92. A twelve-lead EKG was obtained as described above. Patient was medicated with IV Toradol and IV Dilaudid along with IV Zofran for her significant pain. She had plain films of the right hip. Upon returning from radiology, the patient required additional pain medication was given a dose of IV fentanyl. This gave her no relief of her discomfort. She went on to receive another dose of IV Dilaudid along with IV vancomycin. I discussed the case with Dr. Lester. He recommended admission to the hospitalist and aspiration of the joint. The patient was given a second liter of normal saline solution in case she was potentially septic with her elevated lactate and white blood cell count. Her lactate has decreased from 3.5 down to 1.4. Past Med/Surg History Social History Smoking Status: Never smoker Feels Safe at Home: Yes Allergies Allergies Allergy/AdvReac Type Severity Reaction Status Date / Time amoxicillin Allergy Hives Verified 11/25/23 07:11 Penicillins Allergy Hives Verified 11/25/23 07:11 Home Meds Home Medications Medication Instructions Recorded Confirmed aspirin 81 mg tablet,delayed 81 mg PO BID 11/25/23 11/25/23 release celecoxib 200 mg capsule 200 mg PO BID 11/25/23 11/25/23 gabapentin 300 mg capsule 300 mg PO TID PRN Pain (Scale 11/25/23 11/25/23 Score 4-6) metoprolol tartrate 25 mg tablet 25 mg PO BID 11/25/23 11/25/23 tramadol 50 mg tablet 50 mg PO Q4H PRN Pain, Moderate 11/25/23 11/25/23 Results & Data (ED) Vital Signs Vital Signs - 24 hr 11/25/23 05:32 11/25/23 05:47 11/25/23 05:47 Temperature 36.6 C Temperature Source Oral Pulse Rate 101 H 98 H 98 H Pulse Rate [Left Finger] Pulse Rate from SpO2 Sensor Pulse Rhythm Regular Pulse Strength Normal Respiratory Rate 26 H 22 Respiratory Effort / Characteristics Non-Labored Spontaneous Respiratory Depth Normal Respiratory Pattern Regular Blood Pressure 156/87 H 156/101 H Blood Pressure [Right Arm] Blood Pressure Mean 110 119 Blood Pressure Mean [Right Arm] Blood Pressure Position Sitting Blood Pressure Position [Right Arm] Pulse Oximetry 100 100 Oxygen Delivery Method Room Air Room Air Oxygen Flow Rate Sepsis Recent Fever Within 48 Hours No Sepsis New/Unexplained Change in Mental Status No Sepsis Action Taken by Nursing No Action Required 11/25/23 06:01 11/25/23 06:27 11/25/23 06:30 Temperature Temperature Source Pulse Rate 92 H 90 Pulse Rate [Left Finger] Pulse Rate from SpO2 Sensor 93 H Pulse Rhythm Regular Pulse Strength Respiratory Rate 22 18 Respiratory Effort / Characteristics Respiratory Depth Respiratory Pattern Blood Pressure 162/89 H Blood Pressure [Right Arm] Blood Pressure Mean 113 Blood Pressure Mean [Right Arm] Blood Pressure Position Blood Pressure Position [Right Arm] Pulse Oximetry 100 93 79 L Oxygen Delivery Method Room Air Room Air Room Air Oxygen Flow Rate Sepsis Recent Fever Within 48 Hours Sepsis New/Unexplained Change in Mental Status Sepsis Action Taken by Nursing 11/25/23 06:30 11/25/23 06:30 11/25/23 06:42 Temperature Temperature Source Pulse Rate 87 Pulse Rate [Left Finger] Pulse Rate from SpO2 Sensor 86 Pulse Rhythm Pulse Strength Respiratory Rate 14 Respiratory Effort / Characteristics Respiratory Depth Respiratory Pattern Blood Pressure 159/87 H Blood Pressure [Right Arm] Blood Pressure Mean 106 Blood Pressure Mean [Right Arm] Blood Pressure Position Blood Pressure Position [Right Arm] Pulse Oximetry 100 100 Oxygen Delivery Method Nasal Cannula Oxygen Flow Rate 2 2 Sepsis Recent Fever Within 48 Hours Sepsis New/Unexplained Change in Mental Status Sepsis Action Taken by Nursing 11/25/23 07:03 11/25/23 07:09 11/25/23 07:09 Temperature Temperature Source Pulse Rate 92 H Pulse Rate [Left Finger] 93 H Pulse Rate from SpO2 Sensor 92 H Pulse Rhythm Pulse Strength Respiratory Rate 18 31 H Respiratory Effort / Characteristics Respiratory Depth Respiratory Pattern Blood Pressure 133/89 Blood Pressure [Right Arm] 133/89 Blood Pressure Mean 121 Blood Pressure Mean [Right Arm] 103 Blood Pressure Position Blood Pressure Position [Right Arm] Lying Pulse Oximetry 100 100 Oxygen Delivery Method Nasal Cannula Oxygen Flow Rate 2 3 Sepsis Recent Fever Within 48 Hours Sepsis New/Unexplained Change in Mental Status Sepsis Action Taken by Nursing 11/25/23 07:09 11/25/23 07:16 11/25/23 07:30 Temperature 36.9 C Temperature Source Oral Pulse Rate 90 86 Pulse Rate [Left Finger] Pulse Rate from SpO2 Sensor 91 H 88 Pulse Rhythm Pulse Strength Respiratory Rate 27 H 10 L Respiratory Effort / Characteristics Respiratory Depth Respiratory Pattern Blood Pressure Blood Pressure [Right Arm] Blood Pressure Mean Blood Pressure Mean [Right Arm] Blood Pressure Position Blood Pressure Position [Right Arm] Pulse Oximetry 100 97 Oxygen Delivery Method Oxygen Flow Rate Sepsis Recent Fever Within 48 Hours Sepsis New/Unexplained Change in Mental Status Sepsis Action Taken by Nursing 11/25/23 07:31 11/25/23 07:31 11/25/23 08:00 Temperature Temperature Source Pulse Rate 87 Pulse Rate [Left Finger] Pulse Rate from SpO2 Sensor 86 Pulse Rhythm Pulse Strength Respiratory Rate 12 Respiratory Effort / Characteristics Respiratory Depth Respiratory Pattern Blood Pressure 157/75 H 150/98 H Blood Pressure [Right Arm] Blood Pressure Mean 98 127 Blood Pressure Mean [Right Arm] Blood Pressure Position Blood Pressure Position [Right Arm] Pulse Oximetry 98 Oxygen Delivery Method Oxygen Flow Rate Sepsis Recent Fever Within 48 Hours Sepsis New/Unexplained Change in Mental Status Sepsis Action Taken by Nursing 11/25/23 08:00 11/25/23 08:30 11/25/23 08:30 Temperature Temperature Source Pulse Rate 93 H 94 H Pulse Rate [Left Finger] Pulse Rate from SpO2 Sensor 93 H 94 H Pulse Rhythm Pulse Strength Respiratory Rate 17 19 Respiratory Effort / Characteristics Respiratory Depth Respiratory Pattern Blood Pressure 146/100 H Blood Pressure [Right Arm] Blood Pressure Mean 119 Blood Pressure Mean [Right Arm] Blood Pressure Position Blood Pressure Position [Right Arm] Pulse Oximetry 100 99 Oxygen Delivery Method Oxygen Flow Rate Sepsis Recent Fever Within 48 Hours Sepsis New/Unexplained Change in Mental Status Sepsis Action Taken by Nursing 11/25/23 09:00 11/25/23 09:01 11/25/23 09:01 Temperature Temperature Source Pulse Rate 99 H 94 H Pulse Rate [Left Finger] Pulse Rate from SpO2 Sensor 98 H 94 H Pulse Rhythm Pulse Strength Respiratory Rate 13 15 Respiratory Effort / Characteristics Respiratory Depth Respiratory Pattern Blood Pressure 125/78 Blood Pressure [Right Arm] Blood Pressure Mean 106 Blood Pressure Mean [Right Arm] Blood Pressure Position Blood Pressure Position [Right Arm] Pulse Oximetry 100 100 Oxygen Delivery Method Oxygen Flow Rate Sepsis Recent Fever Within 48 Hours Sepsis New/Unexplained Change in Mental Status Sepsis Action Taken by Nursing 11/25/23 09:05 Temperature 36.9 C Temperature Source Oral Pulse Rate Pulse Rate [Left Finger] Pulse Rate from SpO2 Sensor Pulse Rhythm Pulse Strength Respiratory Rate Respiratory Effort / Characteristics Respiratory Depth Respiratory Pattern Blood Pressure Blood Pressure [Right Arm] Blood Pressure Mean Blood Pressure Mean [Right Arm] Blood Pressure Position Blood Pressure Position [Right Arm] Pulse Oximetry Oxygen Delivery Method Oxygen Flow Rate Sepsis Recent Fever Within 48 Hours Sepsis New/Unexplained Change in Mental Status Sepsis Action Taken by Nursing Laboratory Data 11/25/23 05:55 11/25/23 05:55 Lab Results 11/25/23 11/25/23 11/25/23 Range/Units 05:55 06:10 09:03 WBC 15.15 H (4.8-10.8) K/ul RBC 4.41 (4.20-5.40) M/uL Hgb 12.5 (12.0-16.0) g/dl Hct 38.7 (37.0-47.0) % MCV 87.8 (80.0-100.0) fL MCH 28.3 (25.0-34.0) pg MCHC 32.3 (32.0-36.0) g/dL RDW Std Deviation 39.8 (36.4-46.3) fL RDW Coeff of Karishma 12.3 (11.5-14.5) % Plt Count 291 (130-400) K/uL MPV 9.4 (9.4-12.4) fL Immature Gran % (Auto) 0.5 % Neut % (Auto) 79.4 % Lymph % (Auto) 14.3 % Taliaferro % (Auto) 5.3 % Eos % (Auto) 0.3 % Baso % (Auto) 0.2 % Neut # (Auto) 12.03 H (1.40-6.50) K/uL Lymph # (Auto) 2.16 (1.20-3.40) K/uL Tal[place]ferro # (Auto) 0.81 H (0.11-0.59) K/uL Eos # (Auto) 0.04 (0.00-0.50) K/uL Baso # (Auto) 0.03 (0.00-0.20) K/uL Immature Gran # (Auto) 0.08 (0.01-0.20) K/uL ESR 33 H (0-30) mm/hr Sodium 140 (136-145) mmol/L Potassium 4.2 (3.5-5.1) mmol/L Chloride 104 (98-107) mmol/L Carbon Dioxide 22 (21-32) mmol/L Anion Gap 14 H (3-11) BUN 14 (6-23) mg/dl Creatinine 0.98 (0.6-1.2) mg/dl Est Cr Clr Drug Dosing 93.6 ml/min Est GFR ( Amer) 76.9 ml/min Est GFR (Non-Af Amer) 66.3 ml/min BUN/Creatinine Ratio 14.3 (10-20) Glucose 162 H (70-99(Fasting)) mg/dl Lactate 3.5 H* 1.4 (0.4-2.0) mmol/L Calcium 9.9 (8.6-10.3) mg/dl Magnesium 1.6 L (1.7-2.4) mg/dl Total Bilirubin 0.6 (0.2-1.0) mg/dl Direct Bilirubin 0.1 (0-0.2) mg/dl AST 15 (13-39) U/L ALT 16 (7-52) U/L Alkaline Phosphatase 74 (34-104) U/L C-Reactive Protein 2.71 H Cancelled (0-0.5) mg/dl Total Protein 7.5 (6.0-8.3) gm/dl Albumin 4.5 (3.4-5.0) gm/dl Procalcitonin < 0.05 (0-0.5) ng/ml Administered Medications Vancomycin HCl 2,500 mg/ (Sodium Chloride) 550 mls @ 200 mls/hr IV NOW ONE Stop: 11/25/23 09:29 Last Admin: 11/25/23 07:45 Dose: 200 mls/hr Documented By: FLAVIO Discontinued Medications Fentanyl Citrate (Fentanyl Citrate Pf 100 Mcg/2 Ml Vial) 50 mcg IV NOW STA Stop: 11/25/23 06:46 Last Admin: 11/25/23 06:48 Dose: 50 mcg Documented By: NUNO Hydromorphone HCl (Hydromorphone Inj 1 Mg/Ml Syringe) 1 mg IV NOW STA Stop: 11/25/23 05:51 Last Admin: 11/25/23 05:52 Dose: 1 mg Documented By: TREE Hydromorphone HCl (Hydromorphone Inj 1 Mg/Ml Syringe) 1 mg IV NOW STA Stop: 11/25/23 07:14 Last Admin: 11/25/23 07:16 Dose: 1 mg Documented By: FLAVIO Hydromorphone HCl (Hydromorphone Inj 1 Mg/Ml Syringe) 1 mg IV NOW STA Stop: 11/25/23 07:15 Last Admin: 11/25/23 07:15 Dose: Not Given Documented By: FLAVIO Hydromorphone HCl (Hydromorphone Inj 1 Mg/Ml Syringe) 1 mg IV NOW STA Stop: 11/25/23 08:44 Last Admin: 11/25/23 08:52 Dose: 1 mg Documented By: FLAVIO Sodium Chloride (Nss) 1,000 mls @ 999 mls/hr IV .Q1H1M ONE Stop: 11/25/23 08:59 Last Admin: 11/25/23 08:37 Dose: 999 mls/hr Documented By: FLAVIO Ketorolac Tromethamine (Ketorolac 30 Mg/Ml Vial) 30 mg IV NOW ONE Stop: 11/25/23 05:51 Last Admin: 11/25/23 05:55 Dose: 30 mg Documented By: TREE Ondansetron HCl (Ondansetron Inj 2 Mg/Ml 2 Ml Vial) 4 mg IV NOW STA Stop: 11/25/23 05:51 Last Admin: 11/25/23 05:55 Dose: 4 mg Documented By: TREE Ondansetron HCl (Ondansetron Inj 2 Mg/Ml 2 Ml Vial) 4 mg IV NOW STA Stop: 11/25/23 07:15 Last Admin: 11/25/23 07:16 Dose: 4 mg Documented By: FLAVIO Imaging Data Radiologist's Impression: Hip/Pelvis X-Ray 11/25/23 06:00 XR hip RT 2V w pelvis CLINICAL HISTORY: severe right hip pain; no trauma COMPARISON: Right hip MRI July 02, 2023. FINDINGS: Right hip arthroplasty is intact. There is no periprosthetic fracture or lucency. There is an acetabular screw. No fractures within the pelvis or hips are identified. There are no osseous lesions. Suspected tubal ligation clips are present. Left pelvic calcification favors a phlebolith. IMPRESSION: 1. Intact total right hip arthroplasty. No periprosthetic fracture or lucency. 2. No fractures within the pelvis or hips. ACT 112: Negative or not required by law. Electronically signed by: Danyel Gutierrez M.D. 11/25/2023 7:14 AM Discharge Plan Visit Data Chief Complaint: Hip Pain Stated Complaint: S/P RT HIP SURGERY - PAIN,SOMETHING WRONG ED Provider: Leni Dumas Discharge Problem: Acute pain of right hip Forms Stand Alone Forms: My [email or web address] Prescriptions Prescriptions: No Action celecoxib 200 mg capsule 200 mg PO BID aspirin 81 mg tablet,delayed release (DR/EC) 81 mg PO BID tramadol 50 mg tablet 50 mg PO Q4H PRN (Reason: Pain, Moderate) gabapentin 300 mg capsule 300 mg PO TID PRN (Reason: Pain (Scale Score 4-6)) metoprolol tartrate 25 mg tablet 25 mg PO BID Referrals Referrals: Sj Milner PA-C [Primary Care Provider] -
[2023-11-25 07:04] LABS: C Reactive Protein 2.71 mg/dl (0-0.5)
--- NOTE | 2023-11-25 07:17 | XRay Report ---
XR hip RT 2V w pelvis CLINICAL HISTORY: severe right hip pain; no trauma COMPARISON: Right hip MRI July 02, 2023. FINDINGS: Right hip arthroplasty is intact. There is no periprosthetic fracture or lucency. There is an acetabular screw. No fractures within the pelvis or hips are identified. There are no osseous les ions. Suspected tubal ligation clips are present. Left pelvic calcification favors a phlebolith. IMPRESSION: 1. Intact total right hip arthroplasty. No periprosthetic fracture or lucency. 2. No fractures within the pelvis or hips. ACT 112: Negative or not required by law. Electronically signed by: Danyel Gutierrez M.D. 11/25/2023 7:14 AM
[2023-11-25] MEDS ORDERED: SODIUM CHLORIDE 0.9% 1,000 ML IV ONE ×2 (07:59→08:58)
--- NOTE | 2023-11-25 08:52 | History & Physical Report ---
Date of Service November 25, 2023 Assessment & Plan (1) Right groin pain: Plan: 53 year old female w/ PmHx palpitations, low back pain, s/p R total hip replacement admitted for R groin pain. R Groin Pain: -Pain sudden in onset, focused at the mid to medial groin, no loss of sensation, distal strength, incontinence. -s/p R hip replacement 6 weeks, incision site well healed, no discharge or tenderness. -XR of the femur negative for any acute bony abnormalities. -Leukocytosis 15.15, hemoglobin and platelets normal. -Lactate elevated at 3.5, repeat 1.4. CRP 2.71. -Started on Vancomycin in the ER for possible infection in the setting of tachycardia, elevated lactate and WBC. -Can switch to Cefazolin after aspiration, for now will hold antibiotics until after aspiration. -Infection possible, may be at the hip joint itself or surrounding area, site of incision certainly does not look infected. -Can continue vancomycin for now, could switch to Cefazolin after aspiration, will reach shared decision on this with orthopedics. -Dr. Ramirez in orthopedics was consulted, recommended IR aspirate joint. -Will place IR consult for aspiration. -Pain management with Tylenol, morphine 2mg, dilaudid 1mg PRN for pain on pain scale. -Zofran PRN for nausea. -Admit to telemetry for monitoring. Heart Palpitations: -History of heart palpitations, irregular sensation. EKG without any evidence of A fib. -Patient specified takes metoprolol for heart rate control. -Continue metoprolol tartrate 25mg BID while inpatient. -Monitor on telemetry with possible infection. F/E/N/GI: Regular diet, NPO at midnight DVT Prophylaxis: SCD for now given possible aspiration procedure tomorrow. Code status: Full code Dispo: Med/tele (2) S/P total right hip arthroplasty: (3) Heart palpitations: History of Present Illness Chief Complaint: Groin pain Primary Care Provider: Sj Milner Sandee is a 53 year old female w/ PmHx palpitations, low back pain, s/p total hip replacement coming in for sudden onset R groin pain. Patient states that she had a total hip replacement of the R hip around 6 weeks ago that went well. She had done physical therapy for 2 weeks and did the exercises at home thereafter. Around 8PM last night she developed sudden onset R groin pain present at the mid to medial R leg/groin, sharp and intense in nature. She denies the pain radiating however the pain is constant for her. She developed nausea with this pain as well but no vomiting. She states that her lower back pain had improved after the surgery and everything had been going well, denies any trauma or weird movements prior to or at the time that this occurred. She denies any fevers, chills, diarrhea, constipation, dysuria, urinary frequency, urinary incontinence, hematuria, melena or stool irregularities, stool incontinence, numbness at the peripheral extremities. She states she is unable to move her leg very well as it feels like a limp leg along with the large amount of pain. In terms of her medications she had been taking gabapentin for her lower back pain prior to the surgery. She had also been taking metoprolol tartrate prior to the surgery however denies having atrial fibrillation, the medication was stated as for fast heart rate and irregular sensation. In the ER WBC 15.15, Hgb 12.5, neutrophil 12.03, Lactate 3.5, magnesium 1.6, CRP 2.71. XR hip and pelvis showed intact total right hip arthroplasty, no fractures within the pelvis or hips. She was given 1L NSS, fentanyl x1 without relief, dilaudid 1mg x3, vancomycin. Allergies Allergy/AdvReac Type Severity Reaction Status Date / Time amoxicillin Allergy Hives Verified 11/25/23 07:11 Penicillins Allergy Hives Verified 11/25/23 07:11 Home Medications Medication Instructions Recorded Confirmed Type aspirin 81 mg tablet,delayed 81 mg PO BID 11/25/23 11/25/23 History release celecoxib 200 mg capsule 200 mg PO BID 11/25/23 11/25/23 History gabapentin 300 mg capsule 300 mg PO TID PRN Pain (Scale 11/25/23 11/25/23 History Score 4-6) metoprolol tartrate 25 mg tablet 25 mg PO BID 11/25/23 11/25/23 History tramadol 50 mg tablet 50 mg PO Q4H PRN Pain, Moderate 11/25/23 11/25/23 History Past Med/Surg History Social History Smoking Status: Never smoker Second Hand Exposure: No; Do You Dip or Chew Tobacco: No; Tobacco Cessation Education Requested by Patient: No Hx Alcohol Use: No Hx Substance Use: No Communication Ability: Effective Beliefs That Will Affect Care: None Current Living Situation: Spouse Other Information That Helps Us Care for You: No Feels Safe at Home: Yes Assistive Devices: Cane Review of Systems Review of Systems: As per HPI. Physical Exam Constitutional: WD/WN, vitals as above + obese Eyes: PERRL, conjunctivae normal, anicteric sclerae ENMT: external ear and nose normal, oropharynx normal Respiratory: normal respiratory effort, lungs clear to auscultation Cardiovascular: Rate/Rhythm: regular rate and regular rhythm Heart Sounds: normal S1, normal S2 and + murmur (II/ holosystolic murmur best heard at the left sternal border. ) Peripheral pulses 2+ at the bilateral lower extremities. Musculoskeletal: Patient with 5/5 strength with dorsiflexion and plantar flexion of the R foot, unable to move R leg at the knee or hip very much due to pain. Skin: Incision at the R hip in tact, dry, non-erythematous, small few mm size scab without active discharge at the anterior distal portion of the scar. No tenderness to palpation at the incision site. Neurologic: Sensation in tact bilaterally at the lower extremities. Psychiatric: A+Ox3, euthymic affect Lymphatic: No cervical or inguinal lymphadenopathy. Results & Data Results & Data Vital Signs (Past 12 Hours) Vital Signs Temp Pulse Pulse Resp BP BP Pulse Ox 11/25/23 07:09 93 H 31 H 133/89 100 11/25/23 07:03 92 H 18 100 11/25/23 06:42 100 11/25/23 06:30 159/87 H 11/25/23 06:30 87 14 100 11/25/23 06:30 79 L 11/25/23 06:27 90 18 93 11/25/23 06:01 92 H 22 162/89 H 100 11/25/23 05:47 98 H 22 156/101 H 100 11/25/23 05:47 98 H 11/25/23 05:32 36.6 C 101 H 26 H 156/87 H 100 O2 Del Method O2 Flow Rate 11/25/23 07:09 Nasal Cannula 3 11/25/23 07:03 2 11/25/23 06:42 Nasal Cannula 2 11/25/23 06:30 11/25/23 06:30 2 11/25/23 06:30 Room Air 11/25/23 06:27 Room Air 11/25/23 06:01 Room Air 11/25/23 05:47 Room Air 11/25/23 05:47 11/25/23 05:32 Room Air Supervising Physician Co-Signing Physician Notes I personally examined the patient and verified all hoyos points of history and exam, discussed case, and agree with decision making with Dr Tavarez groin pain. Ortho input appreciated. Vitals noted, in general she is awake and alert pleasant no distress. HEENT normocephalic atraumatic mucous membranes moist. Breathing unlabored no accessory muscle use good effort. Skin shows no rashes no pallor or icterus. Right groin painseptic joint until proven otherwisefor aspiration. Hold antibiotics for now for more accurate aspirate. Pain controlled. Otherwise as above. Resident Activity Tracking Resident Involvement: Resident Care Provided Care Provided: Adult Hospital Medicine
[2023-11-25 09:47] LABS: INR 1.1 (0.9-1.1); Prothrombin Time 11.9 Seconds (9.0-12.0)
[2023-11-25] MEDS ORDERED: MoRPHine SULFATE 2 MG/ML CARP ONE (10:09)
[2023-11-25 10:23] LABS: Appearance Urine Clear (Clear); Bilirubin Urine Negative (Negative); Blood Urine Negative (Negative); Color Urine Yellow; Glucose Urine UA Negative (Negative); Ketones Urine Negative (Negative); Leukocyte Esterase Urine Negative (Negative); Nitrite Urine Negative (Negative); Protein Urine Trace (Negative); RBC Urine Automated 0-4 /hpf (0-4); Specific Gravity Urine 1.017 (1.000-1.030); Urobilinogen Urine Negative (Negative); pH Urine 5.5 (4.5-7.5)
[2023-11-25 10:50] LABS: Bacteria Urine Automated 1+ (Negative); Mucus Urine Present (None Prsent)
[2023-11-25] MEDS ORDERED: ACETAMINOPHEN 325 MG TAB PO PRN (11:00)
[2023-11-25] MEDS ORDERED: POLYETHYLENE (MIRALAX) 17 GM PACK PO PRN (11:00)
[2023-11-25] MEDS: METOPROLOL TARTRATE 25 MG TAB PO SCH ×2 (11:12→20:48)
[2023-11-25] MEDS: traMADol HCL 50 MG TABLET PO PRN ×2 (11:12→19:28)
--- NOTE | 2023-11-25 11:14 | Electrocardiogram Report ---
Test Reason : Blood Pressure : / mmHG Vent. Rate : 087 BPM Atrial Rate : 087 BPM P-R Int : 160 ms QRS Dur : 068 ms QT Int : 368 ms P-R-T Axes : -11 011 -10 degrees QTc Int : 442 ms Normal sinus rhythm Nonspecific T wave abnormality Abnormal ECG No previous ECGs available Confirmed by John Flores ([id number]) on 11/25/2023 11:14:29 AM Referred By: REFERRED SELF Confirmed By:John Flores
[2023-11-25] MEDS: NSS + 20MEQ KCL 20 MEQ/1,000 ML BAG IV SCH ×2 (11:48→22:04)
--- NOTE | 2023-11-25 11:53 | Pharmacy Report ---
Pharmacy PK ABX Note - Date of Service November 25, 2023 - Assessment and Plan Assessment 53 year old F receiving Vancomycin for treatment of possible bone and joint infection. * Day #1 of antimicrobial therapy. * HPI: R groin pain recently following a R CLARENCE in 09/2023. * Labs/Vitals: Afebrile. ESR/CRP mildly elevated. Procalcitonin negative. Lactate elevated at 3.5 in ED, down to 1.4 following fluids. Leukocytosis of 15k. Tachycardic meeting SIRS criteria. SCr 0.98 mg/dL (unknown baseline). * Micro: Blood and urine cultures pending. Plan Vancomycin * Loading dose: 2500 mg IV x 1 * Maintenance dose: 1000 mg IV every 12 hours * Regimen is predicted to achieve target AUC/ASHA of 400-600 mg/L.hr * Random level ordered for: 11/27/23 Pharmacy will continue to follow and will adjust dose/frequency as necessary. Thank you. Pharmacy has transitioned to AUC monitoring for vancomycin. AUC/ASHA is the preferred PK/PD target and is associated with decreased risk of nephrotoxicity compared to traditional trough targets.
[2023-11-25] MEDS: HYDROmorphone INJ 1 MG/ML SYRINGE IV PRN ×2 (12:35→22:08)
--- NOTE | 2023-11-25 15:14 | Orthopedic Consultation ---
Date of Consultation November 25, 2023 Assessment & Plan (1) Right groin pain: 53-year-old female with acute right hip/groin pain -Pain control -DVT prophylaxis -Trend labs and inflammatory markers -Bedrest -Medical management -Given patient's elevated C-reactive protein of 2.7 and sedimentation rate of 33 in addition to her clinical examination there is concern for acute joint infection. I would recommend obtaining an aspiration of her right hip with cell count/differential cultures to evaluate for prosthetic joint infection. Please keep n.p.o. at midnight. History of Present Illness Reason for Consultation: Acute right hip pain Attending Physician: Luis Izquierdo DO History of Present Illness 53-year-old male presenting approximately 6 weeks out after undergoing right total hip arthroplasty with acute right hip pain that started last evening. She denies any injuries or trauma. She reports that she recently had a cold but denies any other type of illness. She reports pain with weightbearing and pain that is located in her groin she denies any numbness or paresthesias. She was otherwise doing very well with her hip replacement and was ambulating without assistance in getting back into her regular activities. Allergies Allergy/AdvReac Type Severity Reaction Status Date / Time amoxicillin Allergy Hives Verified 11/25/23 07:11 Penicillins Allergy Hives Verified 11/25/23 07:11 Home Medications Medication Instructions Recorded Confirmed Type aspirin 81 mg tablet,delayed 81 mg PO BID 11/25/23 11/25/23 History release celecoxib 200 mg capsule 200 mg PO BID 11/25/23 11/25/23 History gabapentin 300 mg capsule 300 mg PO TID PRN Pain (Scale 11/25/23 11/25/23 History Score 4-6) metoprolol tartrate 25 mg tablet 25 mg PO BID 11/25/23 11/25/23 History tramadol 50 mg tablet 50 mg PO Q4H PRN Pain, Moderate 11/25/23 11/25/23 History Patient History Social History Smoking Status: Never smoker Second Hand Exposure: No; Do You Dip or Chew Tobacco: No; Tobacco Cessation Education Requested by Patient: No Hx Alcohol Use: No Hx Substance Use: No Communication Ability: Effective Beliefs That Will Affect Care: None Current Living Situation: Spouse Other Information That Helps Us Care for You: No Feels Safe at Home: Yes Assistive Devices: Cane Physical Exam Constitutional: resting in bed, aaox3 Musculoskeletal: RLE - incision well healed, no erythema - right groin pain w/ logroll, unable to slr 2/2 pain - silt s/spn/dpn/t/s - fires ta/ehl/gsc Results & Data Vital Signs (Past 12 Hours) Vital Signs Temp Pulse Pulse Resp BP BP Pulse Ox 11/25/23 14:37 11/25/23 14:17 36.4 C L 92 H 18 126/79 98 11/25/23 11:43 11/25/23 11:41 90 16 130/89 94 11/25/23 11:00 11/25/23 10:22 85 11/25/23 10:01 130/88 11/25/23 10:01 96 H 20 99 11/25/23 10:00 98 H 20 100 11/25/23 09:30 92 H 17 98 11/25/23 09:05 36.9 C 11/25/23 09:01 94 H 15 100 11/25/23 09:01 125/78 11/25/23 09:00 99 H 13 100 11/25/23 08:30 146/100 H 11/25/23 08:30 94 H 19 99 11/25/23 08:00 93 H 17 100 11/25/23 08:00 150/98 H 11/25/23 07:31 157/75 H 11/25/23 07:31 87 12 98 11/25/23 07:30 86 10 L 97 11/25/23 07:16 36.9 C 11/25/23 07:09 90 27 H 100 11/25/23 07:09 133/89 11/25/23 07:09 93 H 31 H 133/89 100 11/25/23 07:03 92 H 18 100 11/25/23 06:42 100 11/25/23 06:30 159/87 H 11/25/23 06:30 87 14 100 11/25/23 06:30 79 L 11/25/23 06:27 90 18 93 11/25/23 06:01 92 H 22 162/89 H 100 11/25/23 05:47 98 H 22 156/101 H 100 11/25/23 05:47 98 H 11/25/23 05:32 36.6 C 101 H 26 H 156/87 H 100 Pulse Ox O2 Del Method O2 Del Method O2 Flow Rate 11/25/23 14:37 Nasal Cannula 2 11/25/23 14:17 Nasal Cannula 2 11/25/23 11:43 95 Room Air 11/25/23 11:41 Room Air 11/25/23 11:00 Room Air 11/25/23 10:22 11/25/23 10:01 11/25/23 10:01 Nasal Cannula 2 11/25/23 10:00 11/25/23 09:30 Nasal Cannula 2 11/25/23 09:05 11/25/23 09:01 11/25/23 09:01 11/25/23 09:00 11/25/23 08:30 11/25/23 08:30 11/25/23 08:00 11/25/23 08:00 11/25/23 07:31 11/25/23 07:31 11/25/23 07:30 11/25/23 07:16 11/25/23 07:09 11/25/23 07:09 11/25/23 07:09 Nasal Cannula 3 11/25/23 07:03 2 11/25/23 06:42 Nasal Cannula 2 11/25/23 06:30 11/25/23 06:30 2 11/25/23 06:30 Room Air 11/25/23 06:27 Room Air 11/25/23 06:01 Room Air 11/25/23 05:47 Room Air 11/25/23 05:47 11/25/23 05:32 Room Air Diagnostic Findings 2 views of the right hip show right total hip arthroplasty to be in satisfactory position without complication.
--- NOTE | 2023-11-25 17:14 | Billing Data ---
Date of Service November 25, 2023 Coding Level of Care Code 52714 INT INP/OBS CARE
[2023-11-25] MEDS ORDERED: VANCOMYCIN HCL 1,000 MG in SODIUM CHLORIDE 0.9% 250 ML IV SCH (20:00)
[2023-11-25 20:40] LABS: A calco-baum cmplx NotReported Not Detected (NotDetected); Bact fragilis Not Reported Not Detected (NotDetected); Blood Culture Id Panel See PCR Comment (NotDetected); C auris Not Reported Not Detected (NotDetected); Calbicans Not Reported Not Detected (NotDetected); Candida glabrata Not Reported Not Detected (NotDetected); Candida krusei Not Reported Not Detected (NotDetected); Cneoformans/gatti Not Reported Not Detected (NotDetected); Cparapsilosis Not Reported Not Detected (NotDetected); E cloacae compx Not Reported Not Detected (NotDetected); Efaecalis Not Reported Not Detected (NotDetected); Efaecium Not Reported Not Detected (NotDetected); Enterobacterales Not Reported Not Detected (NotDetected); Escherichia coli Not Reported Not Detected (NotDetected); H influenzae Not Reported Not Detected (NotDetected); K aerogenes Not Reported Not Detected (NotDetected); Koxytoca Not Reported Not Detected (NotDetected); Kpneumoniae grp Not Reported Not Detected (NotDetected); Lmonocyt Not Reported Not Detected (NotDetected); N meningitidis Not Reported Not Detected (NotDetected); P aeruginosa Not Reported Not Detected (NotDetected); Proteus spp Not Reported Not Detected (NotDetected); Salmonella spp Not Reported Not Detected (NotDetected); Smarcescens Not Reported Not Detected (NotDetected); Staph lugdunensis Not Reported Not Detected (NotDetected); Staph spp. Not Reported DETECTED (NotDetected); Staphaureus Not Reported DETECTED (NotDetected); Staphepi Not Reported Not Detected (NotDetected); Stenmaltophilia Not Reported Not Detected (NotDetected); Strep agal(GrpB) Not Reported Not Detected (NotDetected); Strep pneum Not Reported Not Detected (NotDetected); Strep pyog (GrpA) Not Reported Not Detected (NotDetected); Strep spp Not Reported Not Detected (NotDetected); mecAC+MREJ Resistant Gene MRSA Not Detected (NotDetected)
[2023-11-25 20:58] LABS: Staphylococcus spp. DETECTED (NotDetected)
[2023-11-26] MEDS: HYDROmorphone INJ 1 MG/ML SYRINGE IV PRN ×4 (02:11→11:32)
[2023-11-26] MEDS: traMADol HCL 50 MG TABLET PO PRN ×2 (02:13→07:35)
[2023-11-26] MEDS: MoRPHine SULFATE 2 MG/ML CARP IV PRN ×3 (05:00→13:53)
[2023-11-26 06:05] LABS: Basophils # (auto) 0.03 K/uL (0.00-0.20); Basophils % (auto) 0.2 %; Eosinophils # (auto) 0.03 K/uL (0.00-0.50); Eosinophils % (auto) 0.2 %; Hematocrit (blood only) 32.9 % (37.0-47.0); Hemoglobin 10.3 g/dl (12.0-16.0); Immature Granulocytes # (auto) 0.07 K/uL (0.01-0.20); Immature Granulocytes % (auto) 0.5 %; Lymphocytes # (auto) 1.83 K/uL (1.20-3.40); Mean Corpuscular Hemoglobin 28.5 pg (25.0-34.0); Mean Corpuscular Hgb Conc 31.3 g/dL (32.0-36.0); Mean Corpuscular Volume 91.1 fL (80.0-100.0); Mean Platelet Volume 9.3 fL (9.4-12.4); Monocytes # (auto) 0.69 K/uL (0.11-0.59); Monocytes % (auto) 5.3 %; Neutrophils # (auto) 10.46 K/uL (1.40-6.50); Neutrophils % (auto) 79.8 %; Platelet Count 214 K/uL (130-400); RDW Coefficient of Variation 12.8 % (11.5-14.5); RDW Standard Deviation 42.2 fL (36.4-46.3); Red Blood Count 3.61 M/uL (4.20-5.40); White Blood Count 13.11 K/ul (4.8-10.8)
[2023-11-26 06:19] LABS: Albumin Level 3.7 gm/dl (3.4-5.0); BUN Creatinine Ratio 17.3 (10-20); C Reactive Protein 29.32 mg/dl (0-0.5); Calcium 8.4 mg/dl (8.6-10.3); Est GFR (African American) 96.8 ml/min; Est GFR (Non-African American) 83.5 ml/min; Phosphorus 2.9 mg/dl (2.5-4.9); Potassium 3.7 mmol/L (3.5-5.1)
[2023-11-26 07:36] LABS: Estimated Average Glucose 123 mg/dl; Hemoglobin A1C 5.9 % (4.5-5.6)
--- NOTE | 2023-11-26 07:54 | Hospitalist Progress Note ---
Date of Service November 26, 2023 Assessment & Plan (1) Right groin pain: Plan: 53 year old female w/ PmHx palpitations, low back pain, s/p R total hip replacement admitted for R groin pain. R Groin Pain | Gram Positive Bacteremia -Pain sudden in onset, focused at the mid to medial groin, no loss of sensation, distal strength, incontinence. -s/p R hip replacement 6 weeks, incision site well healed, no discharge or tenderness. -XR of the femur negative for any acute bony abnormalities. -Leukocytosis 13.11, hemoglobin and platelets normal. CRP today of 29.32 -Blood cultures growing staphylococcus -ID Consulted, appreciate recommendation -Echo completed, no signs of vegetations. Follow up repeat blood cultures for clearance. -Continue Cefazolin 2g IV q8h at present, follow up cultures. -Dr. Rmairez in orthopedics was consulted, appreciate recommendation -IR completed aspiration today -Orthopedics plan to complete incision and drainage -Pain management with Tylenol, morphine 2mg, Dilaudid 1mg PRN for pain on pain scale. Zofran PRN for nausea. Heart Palpitations: -History of heart palpitations, irregular sensation. EKG without any evidence of A fib. -Patient specified takes metoprolol for heart rate control. -Continue metoprolol tartrate 25mg BID while inpatient. -Monitor on telemetry F/E/N/GI: NPO while awaiting procedure DVT Prophylaxis: SCDs Code status: Full code Dispo: Med/tele (2) S/P total right hip arthroplasty: (3) Heart palpitations: Admission and Anticipated Discharge Date Admission Date: November 25, 2023 Supervising Physician Co-Signing Physician Notes chart reviewed, case d/w Cristo Tavarez and Judy. I was unable to see the patient physically myself today due to her being off the unit for hip aspiration and then OR. on chart review and in discussion - given the gram (+) bacteremia i directed residency team to repeat Cx, obtain echocardiogram, consult infectious disease, start cefazolin. echo reassurring, repeat Cx obviously too soon for repeat growth, ID input appreciated. septic hip, gram positive bacteremia - ?source. hard pressed to assume hip infection (an "end point" of circulation) would have led to bacteremia (unless once ortho gets into the area there's a lot of surrounding soft tissue infection) - suspicious of bacterial translocation, "provoked spontaneous" bacteremia (ie no clear infection / "spontaneous translocation" but with a set up of circumstances with surgery/wound/physiologic stress/etc) - otherwise as above Subjective Patient seen and examined at bedside this morning. No acute events reported overnight. Patient comfortable unless she moves her hip- causes 10/10 pain. Denies feeling feverish/no chills/body aches. Review of Systems Review of Systems: As per HPI Physical Exam Constitutional: WD/WN, vitals as above Eyes: + anicteric sclerae; no conjunctival abn ormality ENMT: Ears: no external ear abnormality Nose: no external nose abnormality Moist mucous membranes Respiratory: normal respiratory effort, lungs clear to auscultation Cardiovascular: Rate/Rhythm: regular rate and regular rhythm Gastrointestinal (Abdomen): Abdomen soft, nontender, nondistended Skin: no rashes, warm and dry Psychiatric: A+Ox3, euthymic affect Results & Data Results & Data Vital Signs (Past 12 Hours) Vital Signs Temp Pulse Pulse Pulse Resp BP BP 11/26/23 07:40 95 H 11/26/23 07:39 36.5 C 95 H 18 135/68 11/26/23 07:09 11/26/23 03:18 36.5 C 92 H 18 127/67 11/25/23 23:11 36.8 C 83 18 126/77 11/25/23 22:03 863 H 11/25/23 20:19 37.4 C 89 18 127/81 Pulse Ox O2 Del Method O2 Flow Rate 11/26/23 07:40 11/26/23 07:39 98 Nasal Cannula 1 11/26/23 07:09 Nasal Cannula 2 11/26/23 03:18 97 Room Air 11/25/23 23:11 98 Nasal Cannula 2 11/25/23 22:03 11/25/23 20:19 98 Nasal Cannula 2 Resident Activity Tracking Resident Involvement: Resident Care Provided Care Provided: Adult Hospital Medicine
[2023-11-26] MEDS: NSS + 20MEQ KCL 20 MEQ/1,000 ML BAG IV SCH ×2 (07:58→21:30)
[2023-11-26] MEDS: METOPROLOL TARTRATE 25 MG TAB PO SCH ×2 (08:00→22:14)
[2023-11-26] MEDS: ceFAZolin 2000MG 2,000 MG/15 ML SYR IV SCH ×2 (08:20→16:23)
--- NOTE | 2023-11-26 09:06 | Infectious Disease Consult ---
Date of Consultation November 26, 2023 Assessment & Plan (1) Staphylococcus aureus bacteremia: (2) Infection of prosthetic total hip joint: Plan Micro: 11/26 BCx x2: pending 11/25 BCx x2: Staph species in 4/4 bottles. BCID +MSSA Abx: Cefazolin 11/26 - Vanc 11/25 Problems: #MSSA bacteremia #R CLARENCE c/b likely PJI #Antibiotic allergies: amoxicillin (hives), penicillin (hives) 53 yo F with history of R CLARENCE (~10/12/23) who presented on 11/25 with sudden onset R hip pain, admitted with MSSA bacteremia likely 2/2 R hip PJI. On presentation, patient was afebrile with WBC 15.15, ESR 33, CRP 2.71. XR right hip showed intact total right hip arthroplasty, no periprosthetic fracture or lucency. Ortho was consulted and recommended aspiration of the right hip to evaluate for PJI. Admission blood cultures positive for MSSA in 4/4 bottles. TTE showed no valvular vegetation. Recommendations: -Continue cefazolin 2 g IV q8h -Follow-up R hip aspiration -Will likely need OR for prosthetic joint infection. Send samples for culture. Would require 6 weeks of IV antibiotics for PJI treatment, with subsequent PO suppressive antibiotics if infected hardware is retained. Would add rifampin once source control obtained, if hardware is retained. -Follow-up repeat blood cultures for clearance Will continue to follow. Please page [facility] with further questions. Consultation Information Consultation was provided via telemedicine using two-way real-time interactive telecommunication between the patient and the telemedicine provider. For the duration of the visit, the provider was performing the assessment from a different facility than the patient. This includesuse of bluetooth stethoscope forauscultationperformed by the telepresenter that the telemedicine provider can hear if described in the physical exam. Insurance Verification Rep contact information: Please call [facility] [phone]. (Phone Number For Physician Use Only) After establishing a telemedicine visit, patient was: Patient was verified with two unique identifiers, Patient/authorized rep acknowledged consent and understanding and Gave permission to continue telehealth session Time Spent with Patient: Initial => 40 min History of Present Illness Reason for Consultation: MSSA bacteremia Attending Physician: Luis Izquierdo DO History of Present Illness 53 yo F with history of R CLARENCE (~10/12/23) who presented on 11/25 with sudden onset R hip pain which began around 8pm the night before. Denied any preceding trauma/injury to the hip. On presentation, patient was afebrile, HR 101, with labs showing WBC 15.15, ESR 33, CRP 2.71. XR right hip showed intact total right hip arthroplasty, no periprosthetic fracture or lucency. Ortho was co nsulted and recommended aspiration of the right hip to evaluate for PJI. Admission blood cultures positive for staph species in 4/4 bottles, BCID +MSSA. TTE showed no valvular vegetation. Pt reports that she had a reaction to amoxicillin and penicillin >20 years, as an adult, and developed a bad rash. Allergies Allergy/AdvReac Type Severity Reaction Status Date / Time amoxicillin Allergy Hives Verified 11/25/23 07:11 Penicillins Allergy Hives Verified 11/25/23 07:11 Home Medications Medication Instructions Recorded Confirmed Type aspirin 81 mg tablet,delayed 81 mg PO BID 11/25/23 11/25/23 History release celecoxib 200 mg capsule 200 mg PO BID 11/25/23 11/25/23 History gabapentin 300 mg capsule 300 mg PO TID PRN Pain (Scale 11/25/23 11/25/23 History Score 4-6) metoprolol tartrate 25 mg tablet 25 mg PO BID 11/25/23 11/25/23 History tramadol 50 mg tablet 50 mg PO Q4H PRN Pain, Moderate 11/25/23 11/25/23 History Patient History Social History Smoking Status: Never smoker Second Hand Exposure: No; Do You Dip or Chew Tobacco: No; Tobacco Cessation Education Requested by Patient: No Hx Alcohol Use: No Hx Substance Use: No Communication Ability: Effective Beliefs That Will Affect Care: None Current Living Situation: Spouse Other Information That Helps Us Care for You: No Feels Safe at Home: Yes Assistive Devices: Cane Review of System A complete ROS was performed and is negative except as mentioned in the HPI. Physical Exam Physical Exam: GEN: Well-appearing, in NAD. RESP: No increased work of breathing EXT: pain with R hip ROM SKIN: R hip incision with some erythema, slight serous drainage NEURO: Alert and oriented. Answers all questions appropriately. Speech not slurred. PSYCH: Normal mood, affect appropriate. Results & Data Vital Signs (Past 12 Hours) Vital Signs Temp Pulse Pulse Pulse Resp BP Pulse Ox 11/26/23 07:40 95 H 11/26/23 07:39 36.5 C 95 H 18 135/68 98 11/26/23 07:09 11/26/23 03:18 36.5 C 92 H 18 127/67 97 11/25/23 23:11 36.8 C 83 18 126/77 98 11/25/23 22:03 863 H O2 Del Method O2 Flow Rate 11/26/23 07:40 11/26/23 07:39 Nasal Cannula 1 11/26/23 07:09 Nasal Cannula 2 11/26/23 03:18 Room Air 11/25/23 23:11 Nasal Cannula 2 11/25/23 22:03 Laboratory Results Short CBC 11/26/23 Range/Units 05:34 WBC 13.11 H (4.8-10.8) K/ul Hgb 10.3 L (12.0-16.0) g/dl Hct 32.9 L (37.0-47.0) % Plt Count 214 (130-400) K/uL BMP 11/26/23 05:34 Sodium 136 Potassium 3.7 Chloride 105 Carbon Dioxide 25 BUN 14 Creatinine 0.81 Glucose 113 H Calcium 8.4 L Liver Function 11/26/23 Range/Units 05:34 Albumin 3.7 (3.4-5.0) gm/dl Urine 11/25/23 Range/Units 10:07 Urine Color Yellow Urine Appearance Clear (Clear) Urine pH 5.5 (4.5-7.5) Ur Specific [place] 1.017 (1.000-1.030) Urine Protein Trace H (Negative) Urine Glucose (UA) Negative (Negative) Diagnostic Findings Hip/Pelvis X-Ray 11/25/23 06:00 XR hip RT 2V w pelvis CLINICAL HISTORY: severe right hip pain; no trauma COMPARISON: Right hip MRI July 02, 2023. FINDINGS: Right hip arthroplasty is intact. There is no periprosthetic fracture or lucency. There is an acetabular screw. No fractures within the pelvis or hips are identified. There are no osseous lesions. Suspected tubal ligation clips are present. Left pelvic calcification favors a phlebolith. IMPRESSION: 1. Intact total right hip arthroplasty. No periprosthetic fracture or lucency. 2. No fractures within the pelvis or hips. ACT 112: Negative or not required by law. Electronically signed by: Danyel Gutierrez M.D. 11/25/2023 7:14 AM Medications Administered Current Inpatient Medications Acetaminophen (Acetaminophen 325 Mg Tab) 650 mg PO Q4H PRN PRN Reason: mild Pain (1-3) or Fever Stop: 12/25/23 10:59 Hydromorphone HCl (Hydromorphone Inj 1 Mg/Ml Syringe) 1 mg IV Q4H PRN PRN Reason: Severe Pain (Scale 7, 8, 9,10) Stop: 12/09/23 10:59 Last Admin: 11/26/23 07:32 Dose: 1 mg Potassium Chloride/Sodium Chloride (Normal Saline W/20 Meq Kcl) 20 meq in 1,000 mls @ 100 mls/hr IV .Q10H TRISTAN Stop: 12/25/23 10:59 Last Admin: 11/26/23 07:58 Dose: 100 mls/hr Cefazolin Sodium (Ancef 2000mg) 2,000 mg in 15 mls @ 3.75 mls/min IV Q8H TRISTAN Stop: 12/10/23 07:59 Last Admin: 11/26/23 08:20 Dose: 3.75 mls/min Metoprolol Tartrate (Metoprolol Tartrate 25 Mg Tab) 25 mg PO BID TRISTAN Stop: 12/25/23 10:59 Last Admin: 11/26/23 08:00 Dose: 25 mg Miscellaneous Information (Vancomycin Consult Active) 1 each N/A UD PRN PRN Reason: Consult Stop: 12/25/23 06:44 Morphine Sulfate (Morphine Sulfate 2 Mg/Ml Carp) 2 mg IV Q4H PRN PRN Reason: Moderate pain (Scale 4-6) Stop: 12/09/23 10:59 Last Admin: 11/26/23 09:10 Dose: 2 mg Ondansetron HCl (Ondansetron Inj 2 Mg/Ml 2 Ml Vial) 4 mg IV Q6H PRN PRN Reason: Nausea Stop: 12/25/23 10:59 Polyethylene Glycol (Polyethylene (Miralax) 17 Gm Pack) 17 gm PO DAILY PRN PRN Reason: Constipation Stop: 12/25/23 10:59 Tramadol HCl (Tramadol Hcl 50 Mg Tablet) 50 mg PO Q4H PRN PRN Reason: Pain, Moderate (4-6) Stop: 12/25/23 10:59 Last Admin: 11/26/23 07:35 Dose: 50 mg
--- NOTE | 2023-11-26 11:34 | Anesthesiology Consultation ---
Date of Service November 26, 2023 Assessment & Plan Chart Review Chart Review: entry table operator initiated History Surgery Operation Date: 11/26/23 09:35 Proposed Procedures p Right Hip Incision and Drainage - Rommel Lester DO s Poly Exchange - Rommel Lester DO Height/Weight Height: 5 ft 8 in Weight: 128.4 kg Allergies Allergy/AdvReac Type Severity Reaction Status Date / Time amoxicillin Allergy Hives Verified 11/25/23 07:11 Penicillins Allergy Hives Verified 11/25/23 07:11 Medications Home Medications Medication Instructions Recorded Confirmed Last Taken aspirin 81 mg tablet,delayed 81 mg PO BID 11/25/23 11/25/23 11/24/23 release celecoxib 200 mg capsule 200 mg PO BID 11/25/23 11/25/23 11/24/23 gabapentin 300 mg capsule 300 mg PO TID PRN Pain (Scale 11/25/23 11/25/23 11/24/23 Score 4-6) metoprolol tartrate 25 mg tablet 25 mg PO BID 11/25/23 11/25/23 11/24/23 tramadol 50 mg tablet 50 mg PO Q4H PRN Pain, Moderate 11/25/23 11/25/23 11/24/23 Active Medications Generic Name Dose Route Start Last Admin Trade Name Freq PRN Reason Stop Dose Admin Hydromorphone HCl 1 mg 11/25/23 11:00 11/26/23 11:32 Hydromorphone Inj 1 Mg/Ml Syringe IV 12/09/23 10:59 1 mg Q4H PRN Administration Severe Pain (Scale 7, 8, 9,10) Potassium Chloride/Sodium Chloride 20 meq in 1,000 mls @ 100 mls/hr 11/25/23 11:00 11/26/23 07:58 Normal Saline W/20 Meq Kcl IV 12/25/23 10:59 100 mls/hr .Q10H TRISTAN Administration Cefazolin Sodium 2,000 mg in 15 mls @ 3.75 mls/min 11/26/23 08:00 11/26/23 08:20 Ancef 2000mg IV 12/10/23 07:59 3.75 mls/min Q8H TRISTAN Administration Metoprolol Tartrate 25 mg 11/25/23 11:00 11/26/23 08:00 Metoprolol Tartrate 25 Mg Tab PO 12/25/23 10:59 25 mg BID TRISTAN Administration Morphine Sulfate 2 mg 11/25/23 11:00 11/26/23 09:10 Morphine Sulfate 2 Mg/Ml Carp IV 12/09/23 10:59 2 mg Q4H PRN Administration Moderate pain (Scale 4-6) Tramadol HCl 50 mg 11/25/23 11:00 11/26/23 07:35 Tramadol Hcl 50 Mg Tablet PO 12/25/23 10:59 50 mg Q4H PRN Administration Pain, Moderate (4-6) Social History Smoking Status: Never smoker Do You Dip or Chew Tobacco: No Hx Alcohol Use: No Hx Substance Use: No substance use type: does not use Physical Exam Vital Signs Last Vital Signs Temp 97.7 F 11/26/23 07:39 Pulse 95 H 11/26/23 07:40 Resp 18 11/26/23 07:39 BP 135/68 11/26/23 07:39 Pulse Ox 98 11/26/23 07:39 O2 Del Method Nasal Cannula 11/26/23 07:39 O2 Flow Rate 1 11/26/23 07:39 Testing Laboratory Results 11/26/23 05:34 11/26/23 05:34 PT 11.9 Seconds (9.0-12.0) 11/25/23 09:00 INR 1.1 (0.9-1.1) 11/25/23 09:00 Hemoglobin A1c 5.9 % (4.5-5.6) H 11/26/23 05:34 Urine Color Yellow 11/25/23 10:07 Urine Appearance Clear (Clear) 11/25/23 10:07 Urine pH 5.5 (4.5-7.5) 11/25/23 10:07 Ur Specific [place] 1.017 (1.000-1.030) 11/25/23 10:07 Urine Protein Trace (Negative) H 11/25/23 10:07 Urine Glucose (UA) Negative (Negative) 11/25/23 10:07 Urine Ketones Negative (Negative) 11/25/23 10:07 Urine Nitrite Negative (Negative) 11/25/23 10:07 Ur Leukocyte Esterase Negative (Negative) 11/25/23 10:07 Urine WBC (Auto) 10-30 /hpf (0-5) H 11/25/23 10:07 Urine RBC (Auto) 0-4 /hpf (0-4) 11/25/23 10:07 U Hyaline Cast (Auto) 1-5 /lpf (0-5) 11/25/23 10:07 U Epithel Cells (Auto) 5-10 /lpf (0-5) H 11/25/23 10:07 Urine Bacteria (Auto) 1+ (Negative) H 11/25/23 10:07 11/25/23 07:16 Aerobic Blood Culture - Preliminary Blood Gram positive cocci clusters Anaerobic Blood Culture - Preliminary Gram positive cocci clusters 11/25/23 06:10 Aerobic Blood Culture - Preliminary Blood Gram positive cocci clusters Anaerobic Blood Culture - Preliminary Gram positive cocci clusters Electrocardiogram Date: 11/25/23 Normal sinus rhythm, rate 87 bpm Nonspecific T wave abnormality Abnormal ECG No previous ECGs available Confirmed by John Flores ([id number]) on 11/25/2023 11:14:29 AM
--- NOTE | 2023-11-26 14:17 | XCELERA ---
[id number] [id number]
--- NOTE | 2023-11-26 15:04 | Ultrasound Report ---
Ultrasound guided right hip fluid collection aspiration INDICATION: Severe right hip pain; rule out infection PROCEDURE: Procedure and risks were explained. Informed consent was obtained. A final timeout was com pleted. Preprocedure ultrasound scanning demonstrated a complex fluid collection at the lateral right hip/thigh. The right lateral hip/thigh was prepped and draped in sterile fashion. 1% lidocaine was u tilized for skin anesthesia. Utilizing ultrasound guidance, a 5 [place] safety centesis catheter was advanced into the right latera l hip/thigh complex fluid collection. Ultrasound images were obtained. Approximately 100 mL of purule nt fluid was aspirated and sent to lab for analysis. The catheter was removed and Band-Aid applied. T he patient tolerated the procedure well. IMPRESSION: Right hip aspiration as detailed above. Performed, dictated, and signed by Dom Chang PA-C; to be co-signed by Dr. Rommel Murillo. Electronically signed by: Rommel Murillo M.D. 11/26/2023 3:05 PM
--- NOTE | 2023-11-26 16:14 | History & Physical Bridge Note ---
Date of Service November 26, 2023 History & Physical Bridge Note I have examined the patient, reviewed the History & Physical and in the interval since the performance of the History & Physical I have noted the following changes of clinical significance: no changes noted. Met with the patient today. Patient had aspiration of the hip this afternoon which yielded purulent fluid from the right hip joint. Considering these findings we will plan to treat his acute infection. I had a discussion with her regarding risk benefits potential complications of right hip irrigation and debridement with femoral head and polyethylene exchange. After reviewing these she elected to proceed with surgical intervention and written consent was obtained.
[2023-11-26] MEDS ORDERED: fentaNYL citrate PF 100 MCG/2 ML VIAL ONE (16:20)
[2023-11-26] MEDS ORDERED: LIDOCAINE 2% 2 ML VIAL/AMP(20MG/ML) INFIL ONE ×2 (16:20)
[2023-11-26] MEDS ORDERED: DEXAMETHASONE SOD INJ 4 MG/ML VIAL ONE (16:20)
[2023-11-26] MEDS ORDERED: MIDAZOLAM HCL 1 MG/ML 2ML VIAL ONE (16:20)
[2023-11-26] MEDS ORDERED: ONDANSETRON INJ 2 MG/ML 2 ML VIAL ONE (16:20)
[2023-11-26] MEDS ORDERED: PROPOFOL IV EMULSION 10 MG/ML 20 ML VIAL IV ONE ×3 (16:20→17:25)
[2023-11-26] MEDS ORDERED: ROCURONIUM BROMIDE 10 MG/ML 5 ML VIAL IV ONE ×6 (16:21→17:02)
[2023-11-26 16:26] LABS: Appearance Synovial Fluid Cloudy; Color Synovial Fluid Yellow; RBC Synovial Fluid Auto 20000 /uL; Source Synovial Fluid Right Hip; WBC Synovial Fluid Auto 80350 /ul (0-200)
[2023-11-26] MEDS ORDERED: ePHEDrine sulfate 50 MG/ML AMP IV PRN (16:28)
[2023-11-26] MEDS ORDERED: ATROPINE SULFATE 0.1 MG/ML 10ML SYR IV PRN (16:28)
[2023-11-26] MEDS ORDERED: SUGAMMADEX SODIUM 200 MG/2 ML VIAL IV ONE (17:27)
--- NOTE | 2023-11-26 18:24 | Post Operative Brief Note ---
Immediate Post Op Note v1 Date of Surgery November 26, 2023 Pre & Post Diagnosis Operation Date: 11/26/23 09:35 Pre-Op Diagnosis: right hip prosthetic joint infection Post-Op Diagnosis: right hip prosthetic joint infection I identified the patient and participated in the time-out.: Yes Procedure Operation Date: 11/26/23 09:35 Actual Procedures p Right Hip Incision and Drainage(Right) - Rommel Lester DO s Femoral head, Poly Exchange(Right) - Rommel Lester DO Surgeon Rommel Lester DO Surveillance Director none Estimated Blood Loss 100 Findings Consistent with Post-Op Diagnosis none Drains Hemovac Drain Complications none
--- NOTE | 2023-11-26 18:36 | Operative Report ---
Post Operative Report Pre & Post Diagnosis Operation Date: 11/26/23 09:35 Pre-Op Diagnosis: right hip prosthetic joint infection Post-Op Diagnosis: right hip prosthetic joint infection I identified the patient and participated in the time-out.: Yes Procedure Operation Date: 11/26/23 09:35 Actual Procedures p Right Hip Incision and Drainage(Right) - DO carley Márquez Femoral head, Poly Exchange(Right) - Rommel Lester DO Surgeon Rommel Lester DO Cross Cut Saw Operator none Estimated Blood Loss 100 Findings Consistent with Post-Op Diagnosis see dictation Specimens wound cx x2 Complications none Indications 53-year-old female who is approximately 7 weeks out from undergoing right total hip arthroplasty. Approximately a day and a half ago she began to experience pain in her right hip as well as fevers. She presented to the hospital and was found to have MSSA bacteremia. There is concern for prosthetic joint infection so she was sent for an aspiration of her hip. The aspiration did yield purulent fluid. I met with the patient we had a lengthy discussion regarding risk benefits potential complications of right hip irrigation debridement with femoral head and polyethylene exchange. After reviewing these she elected to proceed with surgical intervention and written consent was obtained Description of Procedure Impants: Corentec Bencox Mirabo PE 40mm Std Liner (58mm Shell), Bencox Delta Head 40m Procedure: Patient was properly marked and identified in the preoperative holding area. She was then taken to the operative suite where she was positioned in the lateral decubitus position using Stolberg hip positioners with the right hip facing upwards. Patient received general anesthesia. Timeout was then performed. Posterior lateral incision was then made with a scalpel. Dissection was carried out down through subcutaneous tissue using electrocautery down to the IT band gluteal fascia which was then split in line with the incision. Immediately upon splitting the IT band fascia serosanguineous fluid was encountered. 2 sets of cultures were obtained. Charnley retractor was then placed. The hip was then successfully dislocated and the femoral head was removed from the trunnion as well as the acetabular polyethylene from the acetabular shell. The wound was then copiously irrigated using dilute Betadine solution and scrubbed with a scrub brush. This process was repeated several times. Adding on vitalized tissue was then removed using combination of a Da Silva curette and rongeur. In total 7L of normal saline solution was then used. A new acetabular polyethylene was then impacted into the acetabulum. Retractors were then removed and a new 40 mm ceramic head was impacted onto the trunnion. The hip was successfully relocated. Range of motion as well as stability was assessed and noted to be satisfactory. Charnley retractor was then removed and a deep Hemovac was then placed. IT band and gluteal fascia was closed in a [id number] fashion using 0 PDS suture followed by running 0 strata fix suture. 2-0 strata fix suture was then used to close the subcutaneous tissue followed by ross for the skin. 3-0 nylon was used to sew in the Hemovac. Sterile dressing of Silverlon and 4 x 4 gauze and Tegaderm for the Hemovac site was then applied. Patient tolerated the procedure well was taken recovery room in hemodynamically stable condition. Due to the patient's large size and morbid obesity increased surgical time and complexity was required for: Patient positioning, draping, soft tissue management, surgical exposure as well as the procedure itself and surgical closure leading to a greater than 25% increase in surgical time. I attest to the content of the Intraoperative Record and any orders documented therein. Any exceptions are noted below.
[2023-11-26] MEDS: fentaNYL citrate PF 100 MCG/2 ML VIAL IV PRN ×4 (18:41→18:56)
[2023-11-26] MEDS ORDERED: ONDANSETRON INJ 2 MG/ML 2 ML VIAL IV STA (18:45)
[2023-11-26] MEDS ORDERED: PROMETHAZINE HCL INJ 25 MG/ML 1 ML VIAL ONE (18:49)
[2023-11-26] MEDS: PROMETHAZINE HCL 6.25 MG in SODIUM CHLORIDE 0.9% 50 ML IV STA ×2 (18:50→21:30)
--- NOTE | 2023-11-26 18:50 | Billing Data ---
Date of Service November 26, 2023 Coding Level of Care Code 15886 SUB INP/OBS CARE
[2023-11-26] MEDS ORDERED: ACETAMINOPHEN 1000 MG/100 ML IV IV ONE (19:01)
[2023-11-26] MEDS ORDERED: diphenhydrAMINE 50 MG/ML VIAL IV STA (19:01)
[2023-11-26] MEDS ORDERED: KETOROLAC TROMETHAMINE 15 MG/ML VIAL IV ONE (19:02)
[2023-11-26] MEDS ORDERED: KETOROLAC 30 MG/ML VIAL ONE (19:02)
[2023-11-26] MEDS ORDERED: diphenhydrAMINE 50 MG/ML VIAL ONE (19:02)
[2023-11-26] MEDS ORDERED: ACETAMINOPHEN 1,000 MG/100 ML VIAL IV ONE (19:15)
--- NOTE | 2023-11-26 19:15 | Anesthesiology Progress Note ---
Date of Service November 26, 2023 Anesthesia Post Procedure Vital Signs Vital Signs: Temp Pulse Pulse Pulse Resp BP BP 11/26/23 18:35 36 C L 91 H 16 168/78 H 11/26/23 16:46 94 H 11/26/23 15:59 37.7 C H 100 H 18 159/78 H 11/26/23 15:39 36.7 C 87 18 131/76 11/26/23 11:50 37.2 C 91 H 20 125/67 11/26/23 11:00 11/26/23 07:40 95 H 11/26/23 07:39 36.5 C 95 H 18 135/68 11/26/23 07:09 11/26/23 06:00 11/26/23 03:18 36.5 C 92 H 18 127/67 11/25/23 23:11 36.8 C 83 18 126/77 11/25/23 22:03 863 H 11/25/23 20:19 37.4 C 89 18 127/81 Pulse Ox Pulse Ox O2 Del Method O2 Del Method O2 Flow Rate O2 Flow Rate 11/26/23 18:35 93 Room Air 11/26/23 16:46 11/26/23 15:59 96 Room Air 11/26/23 15:39 97 Room Air 11/26/23 11:50 94 Room Air 11/26/23 11:00 94 Nasal Cannula 2 11/26/23 07:40 11/26/23 07:39 98 Nasal Cannula 1 11/26/23 07:09 Nasal Cannula 2 11/26/23 06:00 95 Nasal Cannula 2 11/26/23 03:18 97 Room Air 11/25/23 23:11 98 Nasal Cannula 2 11/25/23 22:03 11/25/23 20:19 98 Nasal Cannula 2 Pain Intensity Right Hip: Pain Intensity: 7 Transfer of Care Handoff Completed per policy Notes Mental Status: alert / awake / arousable Patient Amnestic to Procedure: Yes Nausea / Vomiting: adequately controlled Pain: adequately controlled Airway Patency, RR, SpO2: stable & adequate BP & HR: stable & adequate Hydration State: stable & adequate Anesthetic Complications: no major complications apparent and Pt Satisfied with anesthetic care Notes: Immediately post op, patient with emergence delirium and hyperventilating, stating she was in pain and feeling nauseous. Zofran, phenergan, and benadryl administered in addition to tylenol and toradol. Patient symptoms improved.
[2023-11-26] MEDS: SODIUM CHLORIDE 0.9% 1,000 ML IV SCH (21:23)
[2023-11-26] MEDS: ASPIRIN 81 MG ECTAB PO SCH (22:14)
[2023-11-27] MEDS ORDERED: ceFAZolin 2000MG 2,000 MG/15 ML SYR IV SCH (00:30)
[2023-11-27] MEDS: ceFAZolin 2000MG 2,000 MG/15 ML SYR IV SCH ×3 (00:34→16:00)
[2023-11-27] MEDS: MoRPHine SULFATE 2 MG/ML CARP IV PRN (05:45)
[2023-11-27 06:18] LABS: Basophils # (auto) 0.02 K/uL (0.00-0.20); Basophils % (auto) 0.2 %; Eosinophils # (auto) 0.02 K/uL (0.00-0.50); Eosinophils % (auto) 0.2 %; Hematocrit (blood only) 27.2 % (37.0-47.0); Hemoglobin 8.9 g/dl (12.0-16.0); Immature Granulocytes # (auto) 0.04 K/uL (0.01-0.20); Immature Granulocytes % (auto) 0.5 %; Lymphocytes # (auto) 1.59 K/uL (1.20-3.40); Lymphocytes % (auto) 19.5 %; Mean Corpuscular Hemoglobin 28.9 pg (25.0-34.0); Mean Corpuscular Hgb Conc 32.7 g/dL (32.0-36.0); Mean Corpuscular Volume 88.3 fL (80.0-100.0); Mean Platelet Volume 9.8 fL (9.4-12.4); Monocytes # (auto) 0.56 K/uL (0.11-0.59); Monocytes % (auto) 6.9 %; Neutrophils # (auto) 5.94 K/uL (1.40-6.50); Neutrophils % (auto) 72.7 %; Platelet Count 205 K/uL (130-400); RDW Coefficient of Variation 12.3 % (11.5-14.5); RDW Standard Deviation 40.1 fL (36.4-46.3); Red Blood Count 3.08 M/uL (4.20-5.40); White Blood Count 8.17 K/ul (4.8-10.8)
[2023-11-27 06:37] LABS: Albumin Level 3.1 gm/dl (3.4-5.0); BUN Creatinine Ratio 17.1 (10-20); Calcium 8.1 mg/dl (8.6-10.3); Creatinine Clr Calc Pharmacy 133.3 ml/min; Est GFR (African American) 115.5 ml/min; Est GFR (Non-African American) 99.6 ml/min; Phosphorus 2.7 mg/dl (2.5-4.9); Potassium 3.8 mmol/L (3.5-5.1)
[2023-11-27 07:04] LABS: C Reactive Protein 32.75 mg/dl (0-0.5)
[2023-11-27] MEDS ORDERED: VANCOMYCIN LEVEL ONE (07:30)
--- NOTE | 2023-11-27 07:38 | Hospitalist Progress Note ---
Date of Service November 27, 2023 Assessment & Plan (1) Right groin pain: Plan: 53 year old female w/ PmHx palpitations, low back pain, s/p R total hip replacement admitted for R groin pain. R Groin Pain | Gram Positive Bacteremia -Pain sudden in onset, focused at the mid to medial groin, no loss of sensation, distal strength, incontinence. -s/p R hip replacement 6 weeks, incision site well healed, no discharge or tenderness. -XR of the femur negative for any acute bony abnormalities. -Blood cultures growing staphylococcus -ID Consulted, appreciate recommendation -Echo completed, no signs of vegetations. Follow up repeat blood cultures for clearance. -Continue Cefazolin + Rifampin X 6 weeks. 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 Refer to ID note for additional recommendations. -CM aware of need for IV antibiotics at time of discharge -Dr. Ramirez in orthopedics was consulted, appreciate recommendation -IR completed aspiration 11/26 -Orthopedics plan to complete incision and drainage -Pain management with scheduled Tylenol/Toradol, morphine 2mg, Dilaudid 1mg PRN for pain on pain scale. Zofran PRN for nausea. Heart Palpitations: -History of heart palpitations, irregular sensation. EKG without any evidence of A fib. -Patient specified takes metoprolol for heart rate control. -Continue metoprolol tartrate 25mg BID while inpatient. -Monitor on telemetry F/E/N/GI: Regular DVT Prophylaxis: SCDs Code status: Full code Dispo: Med/tele (2) S/P total right hip arthroplasty: (3) Heart palpitations: Admission and Anticipated Discharge Date Admission Date: November 25, 2023 Supervising Physician Co-Signing Physician Notes I personally examined the patient and verified all hoyos points of history and exam, discussed case, and agree with decision making with Dr Kim hip pain improving some, but still gets fairly bad at times. Has a little bit of back painbut attributes this to the bed especially since it comes and goes. No other joint pain.Infectious disease input appreciated. Vitals noted, in general she is awake and alert pleasant no distress. HEENT normocephalic atraumatic mucous membranes moist. Breathing unlabored no accessory muscle use good effort. Skin shows no rashes no pallor or icterus. Neuro without focal deficits. septic hip, gram positive bacteremia - ?source. hard pressed to assume hip infection (an "end point" of circulation) would have led to bacteremia (unless once ortho gets into the area there's a lot of surrounding soft tissue infection) - suspicious of bacterial translocation, "provoked spontaneous" bacteremia (ie no clear infection / "spontaneous translocation" but with a set up of circumstances with surgery/wound/physiologic stress/etc) - Now status post washout. Pain control, IV antibioticsdischarge planning. Otherwise as above Subjective Patient seen and examined at bedside. Notes pain with any movement, denies chest pain or shortness of breath. Discussed the need for IV antibiotics for an extended period. Review of Systems Review of Systems: As per HPI Physical Exam Constitutional: WD/WN, vitals as above Eyes: + anicteric sclerae; no conjunctival abn ormality ENMT: Ears: no external ear abnormality Nose: no external nose abnormality Respiratory: normal respiratory effort, lungs clear to auscultation Cardiovascular: Rate/Rhythm: regular rate and regular rhythm Skin: no rashes, warm and dry Psychiatric: A+Ox3, euthymic affect Results & Data Results & Data Vital Signs (Past 12 Hours) Vital Signs Temp Pulse Pulse Resp BP Pulse Ox O2 Del Method 11/27/23 07:24 97 H 11/27/23 03:20 36.7 C 80 18 126/78 94 Room Air 11/26/23 23:25 Nasal Cannula 11/26/23 22:01 36.6 C 76 18 114/76 100 Room Air 11/26/23 21:58 78 11/26/23 20:25 36.6 C 77 20 113/75 100 Nasal Cannula 11/26/23 19:55 36.8 C 80 20 122/76 100 Nasal Cannula O2 Flow Rate 11/27/23 07:24 11/27/23 03:20 11/26/23 23:25 2 11/26/23 22:01 11/26/23 21:58 11/26/23 20:25 3 11/26/23 19:55 3 Resident Activity Tracking Resident Involvement: Resident Care Provided Care Provided: Adult Hospital Medicine
--- NOTE | 2023-11-27 08:10 | Orthopedic Progress Note ---
Date of Service November 27, 2023 Assessment & Plan (1) Infection of prosthetic total hip joint: Plan: 53 yo female stable POD #1 s/p right CLARENCE I&D, poly change secondary to MSSA bacteremia 1. Med management-cont IV abx, appreciate ID input, get final recommendations and plan for postop IV abx, pt will need PICC line 2. DVT prophylaxis- ASA, SCDs 3. PT/OT 4. D/C planning- case management to arrange home/outpt IV abx, ortho to sign off, follow-up with Dr Lester in 10-14 days Admission and Anticipated Discharge Date Admission Date: November 25, 2023 Subjective Pt resting in bed, states moderate pain Physical Exam Physical Exam: Dressing/drain in place, no drain output noted, thigh swollen, toes mobile, NVI Results & Data Vital Signs (Past 12 Hours) Vital Signs Temp Pulse Pulse Resp BP Pulse Ox O2 Del Method 11/27/23 07:50 38.3 C H 99 H 17 126/73 94 Room Air 11/27/23 07:24 97 H 11/27/23 03:20 36.7 C 80 18 126/78 94 Room Air 11/26/23 23:25 Nasal Cannula 11/26/23 22:01 36.6 C 76 18 114/76 100 Room Air 11/26/23 21:58 78 11/26/23 20:25 36.6 C 77 20 113/75 100 Nasal Cannula O2 Flow Rate 11/27/23 07:50 11/27/23 07:24 11/27/23 03:20 11/26/23 23:25 2 11/26/23 22:01 11/26/23 21:58 11/26/23 20:25 3 Laboratory Results 11/27/23 11/27/23 11/26/23 Range/Units 08:08 05:21 Unknown WBC 8.17 (4.8-10.8) K/ul RBC 3.08 L (4.20-5.40) M/uL Hgb 8.9 L (12.0-16.0) g/dl Hct 27.2 L (37.0-47.0) % MCV 88.3 (80.0-100.0) fL MCH 28.9 (25.0-34.0) pg MCHC 32.7 (32.0-36.0) g/dL RDW Std Deviation 40.1 (36.4-46.3) fL RDW Coeff of Karishma 12.3 (11.5-14.5) % Plt Count 205 (130-400) K/uL MPV 9.8 (9.4-12.4) fL Immature Gran % (Auto) 0.5 % Neut % (Auto) 72.7 % Lymph % (Auto) 19.5 % [place] % (Auto) 6.9 % Eos % (Auto) 0.2 % Baso % (Auto) 0.2 % Neut # (Auto) 5.94 (1.40-6.50) K/uL Lymph # (Auto) 1.59 (1.20-3.40) K/uL [place] # (Auto) 0.56 (0.11-0.59) K/uL Eos # (Auto) 0.02 (0.00-0.50) K/uL Baso # (Auto) 0.02 (0.00-0.20) K/uL Immature Gran # (Auto) 0.04 (0.01-0.20) K/uL Sodium 140 (136-145) mmol/L Potassium 3.8 (3.5-5.1) mmol/L Chloride 107 (98-107) mmol/L Carbon Dioxide 27 (21-32) mmol/L Anion Gap 6 (3-11) BUN 12 (6-23) mg/dl Creatinine 0.70 (0.6-1.2) mg/dl Est Cr Clr Drug Dosing 133.3 ml/min Est GFR ( Amer) 115.5 ml/min Est GFR (Non-Af Amer) 99.6 ml/min BUN/Creatinine Ratio 17.1 (10-20) Glucose 108 H (70-99(Fasting)) mg/dl POC Glucose 113 H (70-99) mg/dl Calcium 8.1 L (8.6-10.3) mg/dl Phosphorus 2.7 (2.5-4.9) mg/dl C-Reactive Protein 32.75 H (0-0.5) mg/dl Albumin 3.1 L (3.4-5.0) gm/dl 25-OH Vitamin D Total 11.6 L (30-100) ng/ml Fluid Comment Synovial Source Right Hip Synovial Color Yellow Synovial Appearance Cloudy Synovial WBC (Auto) 05644 H (0-200) /ul Synovial RBC (Auto) 04571 /uL Synovial Polynuclear % 93.0 % Synovial Mononuclear % 7.0 % Microbiology 11/25/23 06:10 Aerobic Blood Culture - Preliminary Blood Staphylococcus aureus Anaerobic Blood Culture - Preliminary Staphylococcus species 11/26/23 Unknown Gram Stain - Final Hip,Right Aerobic and Anaerobic Culture - Preliminary Staphylococcus species 11/26/23 17:26 Gram Stain - Final Hip,Right 11/26/23 17:25 Gram Stain - Final Hip,Right 11/25/23 10:07 Urine Culture - Preliminary Urine,Straight Cath No growth - Less than 1,000 colonies/mL, Final report to follow. 11/25/23 07:16 Aerobic Blood Culture - Preliminary Blood Staphylococcus species Anaerobic Blood Culture - Preliminary Staphylococcus species
[2023-11-27] MEDS: METOPROLOL TARTRATE 25 MG TAB PO SCH ×2 (08:37→20:04)
[2023-11-27] MEDS: ASPIRIN 81 MG ECTAB PO SCH ×2 (08:43→20:04)
--- NOTE | 2023-11-27 09:27 | Infectious Disease Progress Nt ---
Date of Service November 27, 2023 Assessment & Plan (1) Staphylococcus aureus bacteremia: (2) Infection of prosthetic total hip joint: Plan Micro: 11/27 BCx x2: ordered 11/26 R hip cx: Staph species 11/26 #2 deep synovial fluid R hip cx: pending. GS--GPCs 11/26 #1 synovial fluid R hip cx: pending. GS--GPCs 11/26 BCx x2: pending 11/25 BCx x2: MSSA in / bottles Abx: Cefazolin 11/26 - Vanc 11/25 Problems: #MSSA bacteremia #R CLARENCE (09/2023) c/b prosthetic joint infection #Antibiotic allergies: amoxicillin (hives), penicillin (hives) 53 yo F with history of R CLARENCE (~10/12/23) who presented on 11/25 with sudden onset R hip pain, admitted with MSSA bacteremia 2/2 R hip PJI. On presentation, patient was afebrile with WBC 15.15, ESR 33, CRP 2.71. XR right hip showed intact total right hip arthroplasty, no periprosthetic fracture or lucency. Admission blood cultures positive for MSSA in / bottles. TTE showed no valvular vegetation. Ortho was consulted and recommended aspiration of the right hip to evaluate for PJI, which showed purulent fluid. Therefore, pt was taken to the OR on 11/26 for I&D and femoral head and poly exchange. Recommendations: -Ordered a repeat set of blood cultures today. Follow-up blood cultures for clearance -Would hold off on PICC placement until confirmed BCx NGTD x 48 hours -If blood cultures are persistently positive, would recommend RAYO. -Continue cefazolin 2 g IV q8h to complete a 6 week course from date of source control (tentatively 11/27/23 - 01/07/24, assuming blood cultures from today remain NGTD). Alternatively, if easier for administration, can give as cefazolin 6 g IV continuous infusion over 24 hours daily via pump. -Started rifampin 300 mg PO BID due to Staph aureus PJI with retained hardware. This should be continued while on cefazolin -After completion of 6 weeks of cefazolin + rifampin, switch to doxycycline 100 mg PO BID (given penicillin/amoxicillin allergy) PLUS rifampin 300 mg PO BID x 3 months. Subsequently, stop rifampin and continue doxycycline for at least 1 year. Following 1 year, can consider extending doxycycline for the life of the retained hardware if pt is tolerating well, after risk/benefit discussion. Will continue to follow. Please note that ID does not round or write notes over the weekend. If questions or concerns arise, please contact the Infectious Disease Call Center and ask to speak with the covering ID physician. I will be back on service on Thursday. Admission and Anticipated Discharge Date Admission Date: November 25, 2023 Subjective This patient recommendation is based on a telemedicine consult request which was completed asynchronously through chart review and information provided by the primary physician. The patient was not seen or examined today. The evaluation is consultative in nature and all patient care and treatment decisions can either be accepted or rejected by the patient's primary hospital-based treating physician using their own independent medical judgment for their patient. Time Spent Reviewing Chart: 11 - 20 minutes Febrile to 38.3 this AM R hip aspiration yielded purulent fluid Pt was taken to OR on 11/26 evening and underwent I&D, femoral head and poly exchange. OR culture growing Staph species Review of System Patient not seen Physical Exam Physical Exam: Patient not seen Results & Data Vital Signs (Past 12 Hours) Vital Signs Temp Pulse Pulse Resp BP Pulse Ox O2 Del Method 11/27/23 07:50 38.3 C H 99 H 17 126/73 94 Room Air 11/27/23 07:24 97 H 11/27/23 03:20 36.7 C 80 18 126/78 94 Room Air 11/26/23 23:25 Nasal Cannula 11/26/23 22:01 36.6 C 76 18 114/76 100 Room Air 11/26/23 21:58 78 O2 Flow Rate 11/27/23 07:50 11/27/23 07:24 11/27/23 03:20 11/26/23 23:25 2 11/26/23 22:01 11/26/23 21:58 Laboratory Results Short CBC 11/27/23 Range/Units 05:21 WBC 8.17 (4.8-10.8) K/ul Hgb 8.9 L (12.0-16.0) g/dl Hct 27.2 L (37.0-47.0) % Plt Count 205 (130-400) K/uL BMP 11/27/23 05:21 Sodium 140 Potassium 3.8 Chloride 107 Carbon Dioxide 27 BUN 12 Creatinine 0.70 Glucose 108 H Calcium 8.1 L Liver Function 11/27/23 Range/Units 05:21 Albumin 3.1 L (3.4-5.0) gm/dl Medications Administered Current Inpatient Medications Acetaminophen (Acetaminophen 325 Mg Tab) 650 mg PO Q4H PRN PRN Reason: mild Pain (1-3) or Fever Stop: 12/25/23 10:59 Last Admin: 11/27/23 07:37 Dose: 650 mg Aspirin (Aspirin 81 Mg Ectab) 81 mg PO BID [facility] Stop: 12/26/23 20:59 Last Admin: 11/27/23 08:43 Dose: 81 mg Hydromorphone HCl (Hydromorphone Inj 1 Mg/Ml Syringe) 1 mg IV Q4H PRN PRN Reason: Severe Pain (Scale 7, 8, 9,10) Stop: 12/09/23 10:59 Last Admin: 11/26/23 11:32 Dose: 1 mg Cefazolin Sodium (Ancef 2000mg) 2,000 mg in 15 mls @ 3.75 mls/min IV Q8H [facility] Stop: 12/10/23 07:59 Last Admin: 11/27/23 08:36 Dose: 3.75 mls/min Sodium Chloride (Nss) 1,000 mls @ 80 mls/hr IV .[id number] [facility] Stop: 11/27/23 19:29 Last Admin: 11/26/23 21:23 Dose: 80 mls/hr Metoprolol Tartrate (Metoprolol Tartrate 25 Mg Tab) 25 mg PO BID [facility] Stop: 12/25/23 10:59 Last Admin: 11/27/23 08:37 Dose: 25 mg Morphine Sulfate (Morphine Sulfate 2 Mg/Ml Carp) 2 mg IV Q4H PRN PRN Reason: Moderate pain (Scale 4-6) Stop: 12/09/23 10:59 Last Admin: 11/27/23 05:45 Dose: 2 mg Ondansetron HCl (Ondansetron Inj 2 Mg/Ml 2 Ml Vial) 4 mg IV Q6H PRN PRN Reason: Nausea Stop: 12/25/23 10:59 Polyethylene Glycol (Polyethylene (Miralax) 17 Gm Pack) 17 gm PO DAILY PRN PRN Reason: Constipation Stop: 12/25/23 10:59 Tramadol HCl (Tramadol Hcl 50 Mg Tablet) 50 mg PO Q4H PRN PRN Reason: Pain, Moderate (4-6) Stop: 12/25/23 10:59 Last Admin: 11/26/23 07:35 Dose: 50 mg
[2023-11-27] MEDS: SODIUM CHLORIDE 0.9% 1,000 ML IV SCH (09:55)
[2023-11-27] MEDS: rifAMPin 300 MG CAPSULE PO SCH ×2 (11:00→20:04)
[2023-11-27] MEDS: HYDROmorphone INJ 1 MG/ML SYRINGE IV PRN ×3 (12:05→20:04)
--- NOTE | 2023-11-27 20:08 | Billing Data ---
Date of Service November 27, 2023 Coding Level of Care Code 49676 SUB INP/OBS CARE
[2023-11-27] MEDS: ACETAMINOPHEN 325 MG TAB PO SCH (20:44)
[2023-11-27] MEDS: KETOROLAC TROMETHAMINE 15 MG/ML VIAL IV SCH (20:45)
[2023-11-28] MEDS: ceFAZolin 2000MG 2,000 MG/15 ML SYR IV SCH ×4 (00:15→23:03)
[2023-11-28] MEDS: KETOROLAC TROMETHAMINE 15 MG/ML VIAL IV SCH ×4 (02:01→20:07)
[2023-11-28] MEDS: traMADol HCL 50 MG TABLET PO PRN ×2 (05:56→23:02)
[2023-11-28 07:05] LABS: Calcium 7.9 mg/dl (8.6-10.3); Potassium 3.3 mmol/L (3.5-5.1)
[2023-11-28 07:11] LABS: C Reactive Protein 27.37 mg/dl (0-0.5); Creatinine Clr Calc Pharmacy 156.9 ml/min; Est GFR (African American) 121.5 ml/min; Est GFR (Non-African American) 104.8 ml/min; Phosphorus 2.6 mg/dl (2.5-4.9)
[2023-11-28 07:13] LABS: Hemoglobin 8.4 g/dl (12.0-16.0); Mean Corpuscular Hemoglobin 27.9 pg (25.0-34.0); Mean Corpuscular Hgb Conc 31.1 g/dL (32.0-36.0); Mean Corpuscular Volume 89.7 fL (80.0-100.0); Mean Platelet Volume 9.7 fL (9.4-12.4); Platelet Count 178 K/uL (130-400); RDW Coefficient of Variation 12.1 % (11.5-14.5); RDW Standard Deviation 39.8 fL (36.4-46.3); Red Blood Count 3.01 M/uL (4.20-5.40); White Blood Count 5.88 K/ul (4.8-10.8)
[2023-11-28 07:14] LABS: Basophils # (auto) 0.01 K/uL (0.00-0.20); Basophils % (auto) 0.2 %; Eosinophils # (auto) 0.16 K/uL (0.00-0.50); Eosinophils % (auto) 2.7 %; Immature Granulocytes # (auto) 0.02 K/uL (0.01-0.20); Immature Granulocytes % (auto) 0.3 %; Lymphocytes # (auto) 1.74 K/uL (1.20-3.40); Lymphocytes % (auto) 29.6 %; Monocytes # (auto) 0.39 K/uL (0.11-0.59); Monocytes % (auto) 6.6 %; Neutrophils # (auto) 3.56 K/uL (1.40-6.50); Neutrophils % (auto) 60.6 %; RBC Morphology Unremarkable
--- NOTE | 2023-11-28 07:29 | Hospitalist Progress Note ---
Date of Service November 28, 2023 Assessment & Plan (1) Right groin pain: Plan: 53 year old female w/ PmHx palpitations, low back pain, s/p R total hip replacement admitted for R groin pain. R Groin Pain | Gram Positive Bacteremia -Pain sudden in onset, focused at the mid to medial groin, no loss of sensation, distal strength, incontinence. -s/p R hip replacement 6 weeks, incision site well healed, no discharge or tenderness. -XR of the femur negative for any acute bony abnormalities. -Blood cultures growing staphylococcus -ID Consulted, appreciate recommendation -TTE completed, no signs of vegetations. -Continue Cefazolin + Rifampin X 6 weeks. 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 - Blood cultures 11/26 with growth x 48 hours, blood cultures 11/27 without growth to date - Will need nursing home oral antibiotics upon completion of IV: After completion of 6 weeks of cefazolin + rifampin, switch to doxycycline 100 mg PO BID PLUS rifampin 300 mg PO BID x 3 months. Subsequently, stop rifampin and continue doxycycline for at least 1 year. Following 1 year, can consider extending doxycycline for the life of the retained hardware -CM aware of need for IV antibiotics at time of discharge -Dr. Ramirez in orthopedics was consulted, appreciate recommendation -IR completed aspiration 11/26 -s/p I&D and hardware exchange 11/27 -Pain management with scheduled Tylenol/Toradol, morphine 2mg, Dilaudid 1mg PRN for pain on pain scale. Zofran PRN for nausea. Heart Palpitations: -History of heart palpitations, irregular sensation. EKG without any evidence of A fib. -Patient specified takes metoprolol for heart rate control. -Continue metoprolol tartrate 25mg BID while inpatient. -Monitor on telemetry F/E/N/GI: Regular DVT Prophylaxis: SCDs Code status: Full code (2) S/P total right hip arthroplasty: (3) Heart palpitations: Admission and Anticipated Discharge Date Admission Date: November 25, 2023 Supervising Physician Co-Signing Physician Notes I personally examined the patient and verified all hoyos points of history and exam, discussed case, and agree with decision making with Dr Kim hip pain surprisingly better. out of bed. walking some without distress. Vitals noted, in general she is awake and alert pleasant no distress. HEENT normocephalic atraumatic mucous membranes moist. Breathing unlabored no accessory muscle use good effort. Skin shows no rashes no pallor or icterus. Neuro without focal deficits. septic hip, gram positive bacteremia - ?source. hard pressed to assume hip infection (an "end point" of circulation) would have led to bacteremia (unless once ortho gets into the area there's a lot of surrounding soft tissue infection) - suspicious of bacterial translocation, "provoked spontaneous" bacteremia (ie no clear infection / "spontaneous translocation" but with a set up of circumstances with surgery/wound/physiologic stress/etc) - Now status post washout. Pain control doing better, IV antibioticsdischarge planning (home once IV abx set up for home). Otherwise as above Subjective Sandee is doing well this morning. No new complaints. Pain is improving. Review of Systems Review of Systems: As per HPI Physical Exam Physical Exam: Constitutional: well-appearing, no acute distress HEENT: NCAT, no conjunctival injection CV: regular rhythm, no murmur appreciated, extremities well-perfused, no LE edema Resp: CTABL, no wheezes/rales/rhonchi appreciated, no increased work of breathing GI: soft, nondistended, nontender MSK: no gross deformities appreciated, drain in place Skin: warm, dry, no rash appreciated Neuro: alert, oriented, no focal neurologic deficit appreciated Results & Data Results & Data Vital Signs (Past 12 Hours) Vital Signs Temp Pulse Pulse Resp BP Pulse Ox O2 Del Method 11/28/23 07:20 36.8 C 83 18 142/85 H 97 Room Air 11/28/23 04:11 36.8 C 71 20 134/84 97 Room Air 11/28/23 00:08 87 11/27/23 22:00 37.2 C 86 20 115/70 95 Room Air Resident Activity Tracking Resident Involvement: Resident Care Provided Care Provided: Adult Hospital Medicine
[2023-11-28] MEDS: ACETAMINOPHEN 325 MG TAB PO SCH ×3 (08:42→20:09)
[2023-11-28] MEDS: METOPROLOL TARTRATE 25 MG TAB PO SCH ×2 (08:43→20:09)
[2023-11-28] MEDS: ASPIRIN 81 MG ECTAB PO SCH ×2 (08:43→20:09)
[2023-11-28] MEDS: rifAMPin 300 MG CAPSULE PO SCH ×2 (08:43→20:09)
[2023-11-28] MEDS ORDERED: POTASSIUM CHLORIDE CRTAB 20 MEQ TABCR PO STA (13:57)
--- NOTE | 2023-11-28 16:53 | Billing Data ---
Date of Service November 28, 2023 Coding Level of Care Code 24855 SUB INP/OBS CARE
[2023-11-29] MEDS: KETOROLAC TROMETHAMINE 15 MG/ML VIAL IV SCH ×4 (03:22→20:49)
[2023-11-29] MEDS: ONDANSETRON INJ 2 MG/ML 2 ML VIAL IV PRN ×2 (03:26→20:54)
[2023-11-29] MEDS: traMADol HCL 50 MG TABLET PO PRN ×4 (05:40→19:47)
--- NOTE | 2023-11-29 06:52 | Hospitalist Progress Note ---
Date of Service November 29, 2023 Assessment & Plan (1) Right groin pain: Plan: 53 year old female w/ PmHx palpitations, low back pain, s/p R total hip replacement admitted for R groin pain. R Groin Pain | Gram Positive Bacteremia -Pain sudden in onset, focused at the mid to medial groin, no loss of sensation, distal strength, incontinence. -s/p R hip replacement 6 weeks, incision site well healed, no discharge or tenderness. -XR of the femur negative for any acute bony abnormalities. -Blood cultures growing staphylococcus -ID Consulted, appreciate recommendation -TTE completed, no signs of vegetations. -Continue Cefazolin + Rifampin X 6 weeks. 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 - Blood cultures 11/26 and 11/27 with growth x 48 hours - Will need termite helper oral antibiotics upon completion of IV: After completion of 6 weeks of cefazolin + rifampin, switch to doxycycline 100 mg PO BID PLUS rifampin 300 mg PO BID x 3 months. Subsequently, stop rifampin and continue doxycycline for at least 1 year. Following 1 year, can consider extending doxycycline for the life of the retained hardware -CM aware of need for IV antibiotics at time of discharge -Dr. Ramirez in orthopedics was consulted, appreciate recommendation -IR completed aspiration 11/26 -s/p I&D and hardware exchange 11/27 -Pain management with scheduled Tylenol/Toradol, morphine 2mg, Dilaudid 1mg PRN for pain on pain scale. Zofran PRN for nausea. Heart Palpitations: -History of heart palpitations, irregular sensation. EKG without any evidence of A fib. -Patient specified takes metoprolol for heart rate control. -Continue metoprolol tartrate 25mg BID while inpatient. 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 Only new complaint is an outbreak of cold sores, using [id number]/topicals. Vitals noted, in general she is awake and alert pleasant no distress. HEENT normocephalic atraumatic mucous membranes moist. Does have herpetic type cold sore outbreak on upper lip and the lateral side of her nose. Breathing unlabored no accessory muscle use good effort. Skin shows no rashes no pallor or icterus. Neuro without focal deficits. septic hip, gram positive bacteremia - ?source. hard pressed to assume hip infection (an "end point" of circulation) would have led to bacteremia (unless once ortho gets into the area there's a lot of surrounding soft tissue infection) - suspicious of bacterial translocation, "provoked spontaneous" bacteremia (ie no clear infection / "spontaneous translocation" but with a set up of circumstances with surgery/wound/physiologic stress/etc) - Now status post washout. Pain control doing well, ContinueIV antibioticsdischarge planning (home once IV abx set up for home). Valtrex to hasten resolution of cold sores. Otherwise as above Subjective Doing well this morning. Up and walking in hallway. Pain continues to improve in hip. Complaining of cold sores. Review of Systems Review of Systems: As per HPI Physical Exam Physical Exam: Constitutional: well-appearing, no acute distress HEENT: NCAT, no conjunctival injection CV: regular rhythm, no murmur appreciated, extremities well-perfused, no LE edema Resp: CTABL, no wheezes/rales/rhonchi appreciated, no increased work of breathing MSK: no gross deformities appreciated, drain in place Skin: warm, dry, no rash appreciated Neuro: alert, oriented, no focal neurologic deficit appreciated Results & Data Results & Data Vital Signs (Past 12 Hours) Vital Signs Temp Pulse Resp BP Pulse Ox O2 Del Method 11/29/23 03:08 36.6 C 77 18 139/83 97 Room Air 11/28/23 23:12 36.4 C L 77 18 147/85 H 96 Room Air 11/28/23 19:14 36.8 C 82 16 145/79 H 98 Room Air Resident Activity Tracking Resident Involvement: Resident Care Provided Care Provided: Adult Hospital Medicine
[2023-11-29] MEDS: rifAMPin 300 MG CAPSULE PO SCH ×2 (08:33→20:49)
[2023-11-29] MEDS: ACETAMINOPHEN 325 MG TAB PO SCH ×3 (08:33→20:49)
[2023-11-29] MEDS: ASPIRIN 81 MG ECTAB PO SCH ×2 (08:33→20:49)
[2023-11-29] MEDS: METOPROLOL TARTRATE 25 MG TAB PO SCH ×2 (08:33→20:49)
[2023-11-29] MEDS: ceFAZolin 2000MG 2,000 MG/15 ML SYR IV SCH ×2 (08:38→16:46)
[2023-11-29 09:02] LABS: Basophils # (auto) 0.02 K/uL (0.00-0.20); Basophils % (auto) 0.4 %; Eosinophils # (auto) 0.16 K/uL (0.00-0.50); Eosinophils % (auto) 3.3 %; Hematocrit (blood only) 26.8 % (37.0-47.0); Hemoglobin 8.5 g/dl (12.0-16.0); Immature Granulocytes # (auto) 0.02 K/uL (0.01-0.20); Immature Granulocytes % (auto) 0.4 %; Lymphocytes # (auto) 1.55 K/uL (1.20-3.40); Mean Corpuscular Hemoglobin 28.3 pg (25.0-34.0); Mean Corpuscular Hgb Conc 31.7 g/dL (32.0-36.0); Mean Corpuscular Volume 89.3 fL (80.0-100.0); Mean Platelet Volume 9.3 fL (9.4-12.4); Monocytes # (auto) 0.45 K/uL (0.11-0.59); Monocytes % (auto) 9.3 %; Neutrophils # (auto) 2.64 K/uL (1.40-6.50); Neutrophils % (auto) 54.6 %; Platelet Count 241 K/uL (130-400); RDW Coefficient of Variation 12.2 % (11.5-14.5); RDW Standard Deviation 39.8 fL (36.4-46.3); White Blood Count 4.84 K/ul (4.8-10.8)
[2023-11-29 09:11] LABS: Albumin Level 3.1 gm/dl (3.4-5.0); BUN Creatinine Ratio 22.8 (10-20); Calcium 8.1 mg/dl (8.6-10.3); Creatinine Clr Calc Pharmacy 164.9 ml/min; Est GFR (African American) 123.5 ml/min; Est GFR (Non-African American) 106.6 ml/min; Phosphorus 2.6 mg/dl (2.5-4.9); Potassium 3.3 mmol/L (3.5-5.1)
[2023-11-29] MEDS ORDERED: POTASSIUM CHLORIDE CRTAB 20 MEQ TABCR PO STA (11:43)
--- NOTE | 2023-11-29 20:03 | Billing Data ---
Date of Service November 29, 2023 Coding Level of Care Code 95236 SUB INP/OBS CARE
[2023-11-29] MEDS: valACYclovir HCL 500 MG TABLET PO SCH (20:49)
[2023-11-30] MEDS: ceFAZolin 2000MG 2,000 MG/15 ML SYR IV SCH ×4 (00:34→23:59)
[2023-11-30] MEDS: KETOROLAC TROMETHAMINE 15 MG/ML VIAL IV SCH ×2 (02:09→07:49)
[2023-11-30] MEDS: traMADol HCL 50 MG TABLET PO PRN ×4 (05:43→21:56)
[2023-11-30 06:50] LABS: Basophils # (auto) 0.01 K/uL (0.00-0.20); Basophils % (auto) 0.2 %; Eosinophils # (auto) 0.18 K/uL (0.00-0.50); Eosinophils % (auto) 4.1 %; Hematocrit (blood only) 25.7 % (37.0-47.0); Hemoglobin 8.1 g/dl (12.0-16.0); Immature Granulocytes # (auto) 0.02 K/uL (0.01-0.20); Immature Granulocytes % (auto) 0.5 %; Lymphocytes # (auto) 1.54 K/uL (1.20-3.40); Lymphocytes % (auto) 34.8 %; Mean Corpuscular Hemoglobin 28.2 pg (25.0-34.0); Mean Corpuscular Hgb Conc 31.5 g/dL (32.0-36.0); Mean Corpuscular Volume 89.5 fL (80.0-100.0); Mean Platelet Volume 9.2 fL (9.4-12.4); Monocytes # (auto) 0.36 K/uL (0.11-0.59); Monocytes % (auto) 8.1 %; Neutrophils # (auto) 2.31 K/uL (1.40-6.50); Neutrophils % (auto) 52.3 %; Platelet Count 255 K/uL (130-400); RDW Coefficient of Variation 12.3 % (11.5-14.5); Red Blood Count 2.87 M/uL (4.20-5.40); White Blood Count 4.42 K/ul (4.8-10.8)
[2023-11-30 07:26] LABS: BUN Creatinine Ratio 19.4 (10-20); Calcium 8.4 mg/dl (8.6-10.3); Creatinine Clr Calc Pharmacy 152.2 ml/min; Est GFR (African American) 120.2 ml/min; Est GFR (Non-African American) 103.7 ml/min; Potassium 3.3 mmol/L (3.5-5.1)
[2023-11-30] MEDS: ACETAMINOPHEN 325 MG TAB PO SCH (07:51)
[2023-11-30] MEDS: rifAMPin 300 MG CAPSULE PO SCH ×2 (07:52→20:02)
[2023-11-30] MEDS: METOPROLOL TARTRATE 25 MG TAB PO SCH ×2 (07:52→20:02)
[2023-11-30] MEDS: valACYclovir HCL 500 MG TABLET PO SCH (07:52)
[2023-11-30] MEDS: ASPIRIN 81 MG ECTAB PO SCH ×2 (07:52→20:02)
--- NOTE | 2023-11-30 08:56 | Infectious Disease Progress Nt ---
Date of Service November 30, 2023 Assessment & Plan (1) Staphylococcus aureus bacteremia: (2) Infection of prosthetic total hip joint: Plan Micro: 11/27 BCx x2: NGTD 11/26 R hip cx: MSSA 11/26 #2 deep synovial fluid R hip cx: MSSA 11/26 #1 synovial fluid R hip cx: MSSA 11/26 BCx x2: NGTD 11/25 BCx x2: MSSA in / bottles Abx: Cefazolin 11/26 - present Vanc 11/25 Problems: #MSSA bacteremia #R CLARENCE (09/2023) c/b prosthetic joint infection #Antibiotic allergies: amoxicillin (hives), penicillin (hives) 53 yo F with history of recent R CLARENCE (~10/12/23) who presented on 11/25 with sudden onset R hip pain, admitted with MSSA bacteremia 2/2 R hip PJI. On presentation, patient was afebrile with WBC 15.15, ESR 33, CRP 2.71. XR right hip showed intact total right hip arthroplasty, no periprosthetic fracture or lucency. Admission blood cultures positive for MSSA in /4 bottles. TTE showed no valvular vegetation. Ortho was consulted and recommended aspiration of the right hip to evaluate for PJI, which showed purulent fluid. Therefore, pt was taken to the OR on 11/26 for I&D and femoral head and poly exchange. OR cultures growing MSSA. Recommendations: -Ok for PICC placement -Continue cefazolin 2 g IV q8h to complete a 6 week course from 11/27/23 - 01/07/24. (Alternatively, if easier for administration, can give as cefazolin 6 g IV continuous infusion over 24 hours daily via pump.) -Continue rifampin 300 mg PO BID due to Staph aureus PJI with retained hardware. This should be continued while on cefazolin. Note that bodily fluids will turn orange while on rifampin. -Check weekly CBC with diff, CMP while on above antibiotics -After completion of 6 weeks of cefazolin + rifampin, switch to doxycycline 100 mg PO BID (given penicillin/amoxicillin allergy) PLUS rifampin 300 mg PO BID x 3 months. Subsequently, stop rifampin and continue doxycycline for at least 1 year. Following 1 year, can consider extending doxycycline for the life of the retained hardware if pt is tolerating well, after risk/benefit discussion. Will sign off. Please page [facility] with further questions. Admission and Anticipated Discharge Date Admission Date: November 25, 2023 Subjective This patient recommendation is based on a telemedicine consult request which was completed asynchronously through chart review and information provided by the primary physician. The patient was not seen or examined today. The evaluation is consultative in nature and all patient care and treatment decisions can either be accepted or rejected by the patient's primary hospital-based treating physician using their own independent medical judgment for their patient. Time Spent Reviewing Chart: 11 - 20 minutes No acute events Review of System Patient not seen Physical Exam Physical Exam: Patient not seen Results & Data Vital Signs (Past 12 Hours) Vital Signs Temp Pulse Resp BP Pulse Ox O2 Del Method 11/30/23 07:00 37.4 C 69 16 150/89 H 97 Room Air Laboratory Results Short CBC 11/29/23 11/30/23 Range/Units 08:15 06:20 WBC 4.84 4.42 L (4.8-10.8) K/ul Hgb 8.5 L 8.1 L (12.0-16.0) g/dl Hct 26.8 L 25.7 L (37.0-47.0) % Plt Count 241 255 (130-400) K/uL BMP 11/29/23 11/30/23 08:15 06:20 Sodium 141 140 Potassium 3.3 L 3.3 L Chloride 106 105 Carbon Dioxide 29 28 BUN 13 12 Creatinine 0.57 L 0.62 Glucose 97 102 H Calcium 8.1 L 8.4 L Liver Function 11/29/23 Range/Units 08:15 Albumin 3.1 L (3.4-5.0) gm/dl Medications Administered Current Inpatient Medications Acetaminophen (Acetaminophen 325 Mg Tab) 650 mg PO TID [facility] Stop: 12/27/23 20:59 Last Admin: 11/30/23 07:51 Dose: 650 mg Aspirin (Aspirin 81 Mg Ectab) 81 mg PO BID [facility] Stop: 12/26/23 20:59 Last Admin: 11/30/23 07:52 Dose: 81 mg Hydromorphone HCl (Hydromorphone Inj 1 Mg/Ml Syringe) 1 mg IV Q4H PRN PRN Reason: Severe Pain (Scale 7, 8, 9,10) Stop: 12/09/23 10:59 Last Admin: 11/27/23 20:04 Dose: 1 mg Cefazolin Sodium (Ancef 2000mg) 2,000 mg in 15 mls @ 3.75 mls/min IV Q8H [facility] Stop: 12/10/23 07:59 Last Admin: 11/30/23 07:57 Dose: 3.75 mls/min Ketorolac Tromethamine (Ketorolac Tromethamine 15 Mg/Ml Vial) 15 mg IV Q6H [facility] Stop: 12/02/23 20:29 Last Admin: 11/30/23 07:49 Dose: Not Given Metoprolol Tartrate (Metoprolol Tartrate 25 Mg Tab) 25 mg PO BID [facility] Stop: 12/25/23 10:59 Last Admin: 11/30/23 07:52 Dose: 25 mg Morphine Sulfate (Morphine Sulfate 2 Mg/Ml Carp) 2 mg IV Q4H PRN PRN Reason: Moderate pain (Scale 4-6) Stop: 12/09/23 10:59 Last Admin: 11/27/23 05:45 Dose: 2 mg Ondansetron HCl (Ondansetron Inj 2 Mg/Ml 2 Ml Vial) 4 mg IV Q6H PRN PRN Reason: Nausea Stop: 12/25/23 10:59 Last Admin: 11/29/23 20:54 Dose: 4 mg Polyethylene Glycol (Polyethylene (Miralax) 17 Gm Pack) 17 gm PO DAILY PRN PRN Reason: Constipation Stop: 12/25/23 10:59 Rifampin (Rifampin 300 Mg Capsule) 300 mg PO BID [facility] Stop: 01/08/24 09:44 Last Admin: 11/30/23 07:52 Dose: 300 mg Tramadol HCl (Tramadol Hcl 50 Mg Tablet) 50 mg PO Q4H PRN PRN Reason: Pain, Moderate (4-6) Stop: 12/25/23 10:59 Last Admin: 11/30/23 05:43 Dose: 50 mg Valacyclovir HCl (Valacyclovir Hcl 500 Mg Tablet) 2,000 mg PO BID [facility] Stop: 11/30/23 10:59 Last Admin: 11/30/23 07:52 Dose: 2,000 mg
--- NOTE | 2023-11-30 14:29 | Medical Student Progress Note ---
Date of Service November 30, 2023 Assessment & Plan (1) Staphylococcus aureus bacteremia: Plan: 53 year old female w/ PmHx palpitations, low back pain, s/p R total hip replacement admitted for R groin pain. -Blood cultures growing staphylococcus -TTE completed, no signs of vegetations. - Blood cultures 11/26 and 11/27 with growth x 48 hours - Blood culture 11/28 without growth x 48 hrs Per ID: - Continue cefazolin 2 g IV q8h to complete a 6 week course (11/27/23 - 01/07/24). - Continue rifampin 300 mg PO BID for duration 6 weeks - Check weekly CBC with diff, CMP while on above antibiotics - After completion of 6 weeks of cefazolin + rifampin, switch to doxycycline 100 mg PO BID, PLUS rifampin 300 mg PO BID x 3 months. -Subsequently, stop rifampin and continue doxycycline for at least 1 year. Could extend doxycycline for the life of the retained hardware if pt is tolerating well, after risk/benefit discussion with patient. - Consult placed for PICC placement - CM aware of need for IV antibiotics at time of discharge (2) Infection of prosthetic total hip joint: Plan: -Dr. Ramirez in orthopedics was consulted, appreciate recommendation -IR completed aspiration 11/26 -s/p I&D and hardware exchange 11/27 (3) Right groin pain: Plan: -Pain sudden in onset, focused at the mid to medial groin, no loss of sensation, distal strength, incontinence. -s/p R hip replacement 6 weeks, incision site well healed, no discharge or tenderness. -XR of the femur negative for any acute bony abnormalities. -As per above, plan for bacteremia -Pain management with scheduled Tylenol/Toradol, morphine 2mg, Dilaudid 1mg PRN for pain on pain scale. Zofran PRN for nausea. (4) S/P total right hip arthroplasty: Plan: As above (5) Heart palpitations: Plan: Heart Palpitations: -History of heart palpitations, irregular sensation. EKG without any evidence of A fib. -Patient specified takes metoprolol for heart rate control. -Continue metoprolol tartrate 25mg BID while inpatient. -Monitor on telemetry Event overnight 11/29-11/30 with heart racing, eye pain, body vibrating improved in the morning. Switch from Toradol to tramadol (6) Cold sore: Plan: - Valtrex 2g BID x 1 day Plan F/E/N/GI: Regular DVT Prophylaxis: SCDs, Lovenox 40mg q12 Code status: Full code Admission and Anticipated Discharge Date Admission Date: November 25, 2023 Supervising Attestation Attending Physician Supervision Note: I independently interviewed and examined the patient and verified the hoyos history and physical, reviewed labs and image studies and agree with findings and care plan noted above. concern of feeling flushed last night and after other doses of receiving toradol. no other concerns Vitals noted, in general she is awake and alert pleasant no distress. HEENT normocephalic atraumatic mucous membranes moist. herpetic type cold sore outbreak on upper lip and the lateral side of her nose. Breathing unlabored no accessory muscle use good effort. Skin - no rashes no pallor or icterus. Neuro without focal deficits. septic hip, gram positive bacteremia - ?source - ? skin source. hip with few staph aureus - likely post bacteremia seeding than the primary source. 2D echo - No vegetation. -Now status post washout. -Continue IV cefazolin and rifampin. PICC line consent done. -d/c toradol and add tramadol for pain control. Cold sore - Valtrex to hasten resolution of cold sores. Lovenox Subjective Ms. Hightower is feeling well this morning, she was sitting up on the edge of her bed eating breakfast. She had one event overnight with heart racing and eye pain which has resolved this morning and patient attributes to toradol. The pain from her coldsores has improved with valtrex. She has been ambulating, rates her pain a 5 when walking with her walker and no pain at rest. Pain improved with ice pack. Incision site without swelling or pain. Review of Systems Review of Systems: As per HPI Physical Exam Constitutional: WD/WN, vitals as above no acute distress Eyes: PERRL, conjunctivae normal, anicteric sclerae + anicteric sclerae; no conjunctival abnormality ENMT: Mouth: no dentition abnormality Neck: normal visual inspection Respiratory: normal respiratory effort, lungs clear to auscultation normal respiratory effort; no respiratory distress Auscultation: lungs clear to auscultation bilaterally Cardiovascular: Rate/Rhythm: regular rate and regular rhythm Heart Sounds: normal S1 and normal S2; no murmur Musculoskeletal: No right leg tenderness or edema, equal pedal pulses bilaterally. Skin: no rashes, warm and dry Psychiatric: A+Ox3, euthymic affect Orientation: alert and oriented x 3 Results & Data Vital Signs (Past 12 Hours) Vital Signs Temp Pulse Resp BP Pulse Ox O2 Del Method 11/30/23 07:00 37.4 C 69 16 150/89 H 97 Room Air
[2023-11-30] MEDS ORDERED: ENOXAPARIN INJ 40 MG/0.4 ML SYR SQ SCH (15:00)
[2023-11-30] MEDS: ENOXAPARIN INJ 40 MG/0.4 ML SYR SQ SCH (20:02)
[2023-12-01] MEDS: ACETAMINOPHEN 325 MG TAB PO PRN ×2 (00:06→08:03)
[2023-12-01] MEDS: traMADol HCL 50 MG TABLET PO PRN ×4 (02:17→13:53)
[2023-12-01 07:16] LABS: BUN Creatinine Ratio 14.8 (10-20); Basophils # (auto) 0.01 K/uL (0.00-0.20); Basophils % (auto) 0.2 %; Calcium 8.4 mg/dl (8.6-10.3); Creatinine Clr Calc Pharmacy 174.7 ml/min; Eosinophils # (auto) 0.15 K/uL (0.00-0.50); Eosinophils % (auto) 2.5 %; Est GFR (African American) 125.7 ml/min; Est GFR (Non-African American) 108.5 ml/min; Hematocrit (blood only) 25.6 % (37.0-47.0); Hemoglobin 8.1 g/dl (12.0-16.0); Immature Granulocytes # (auto) 0.03 K/uL (0.01-0.20); Immature Granulocytes % (auto) 0.5 %; Lymphocytes # (auto) 2.11 K/uL (1.20-3.40); Lymphocytes % (auto) 34.5 %; Mean Corpuscular Hemoglobin 28.2 pg (25.0-34.0); Mean Corpuscular Hgb Conc 31.6 g/dL (32.0-36.0); Mean Corpuscular Volume 89.2 fL (80.0-100.0); Monocytes # (auto) 0.41 K/uL (0.11-0.59); Monocytes % (auto) 6.7 %; Neutrophils # (auto) 3.41 K/uL (1.40-6.50); Neutrophils % (auto) 55.6 %; Platelet Count 287 K/uL (130-400); Potassium 3.3 mmol/L (3.5-5.1); RDW Coefficient of Variation 12.4 % (11.5-14.5); Red Blood Count 2.87 M/uL (4.20-5.40); White Blood Count 6.12 K/ul (4.8-10.8)
[2023-12-01] MEDS: METOPROLOL TARTRATE 25 MG TAB PO SCH (07:55)
[2023-12-01] MEDS: rifAMPin 300 MG CAPSULE PO SCH (07:55)
[2023-12-01] MEDS: ASPIRIN 81 MG ECTAB PO SCH (07:55)
[2023-12-01] MEDS: ceFAZolin 2000MG 2,000 MG/15 ML SYR IV SCH ×2 (07:56→15:10)
[2023-12-01] MEDS: ENOXAPARIN INJ 40 MG/0.4 ML SYR SQ SCH (08:04)
--- NOTE | 2023-12-01 09:08 | Medical Student Progress Note ---
Date of Service December 01, 2023 Assessment & Plan (1) Staphylococcus aureus bacteremia: Plan: 53 year old female w/ PmHx palpitations, low back pain, s/p R total hip replacement admitted for R groin pain. -Blood cultures growing staphylococcus -TTE completed, no signs of vegetations. - Blood cultures 11/26 and 11/27 with growth x 48 hours - Blood culture 11/28 without growth x 48 hrs Per ID: - Continue cefazolin 2 g IV q8h to complete a 6 week course (11/27/23 - 01/07/24). - Continue rifampin 300 mg PO BID for duration 6 weeks - Check weekly CBC with diff, CMP while on above antibiotics - After completion of 6 weeks of cefazolin + rifampin, switch to doxycycline 100 mg PO BID, PLUS rifampin 300 mg PO BID x 3 months. -Subsequently, stop rifampin and continue doxycycline for at least 1 year. Could extend doxycycline for the life of the retained hardware if pt is tolerating well, after risk/benefit discussion with patient. - PICC placed - working on home health IV antibiotics (2) Infection of prosthetic total hip joint: Plan: -Dr. Ramirez in orthopedics was consulted, appreciate recommendation -IR completed aspiration 11/26 -s/p I&D and hardware exchange 11/27 (3) Right groin pain: Plan: -Pain sudden in onset, focused at the mid to medial groin, no loss of sensation, distal strength, incontinence. -s/p R hip replacement 6 weeks, incision site well healed, no discharge or tenderness. -XR of the femur negative for any acute bony abnormalities. -As per above, plan for bacteremia -Pain management with scheduled Tylenol/Toradol, morphine 2mg, Dilaudid 1mg PRN for pain on pain scale. Zofran PRN for nausea. (4) S/P total right hip arthroplasty: Plan: As above (5) Heart palpitations: Plan: -History of heart palpitations, irregular sensation. EKG without any evidence of A fib. -Patient specified takes metoprolol for heart rate control. -Continue metoprolol tartrate 25mg BID while inpatient. -Monitor on telemetry Event overnight 11/29-11/30 with heart racing, eye pain, body vibrating improved in the morning with switch to tramadol (6) Cold sore: Plan: - Valtrex 2g BID x 1 day Plan F/E/N/GI: Regular DVT Prophylaxis: SCDs, Lovenox 40mg q12 Code status: Full code Disposition: Discharge pending home health set up Admission and Anticipated Discharge Date Admission Date: November 25, 2023 Subjective Ms. Hightower is feeling well this morning, better than yesterday. She was sitting up on in bed eating breakfast. She had no further events of heart racing and body tingling yesterday or overnight. She slept well through the night. She rates her groin pain at a 5 when walking and 0 while in bed. Incision site without swelling or pain. Her PICC line was placed yesterday successfully. The pain from her cold sores continues to improve with valtrex. at bedside. CM submitted financial assistance paperwork yesterday awaiting response. Review of Systems Review of Systems: As per HPI Physical Exam Constitutional: WD/WN, vitals as above + obese; no acute distress Eyes: PERRL, conjunctivae normal, anicteric sclerae + anicteric sclerae; no conjunctival abnormality ENMT: Mouth: no dentition abnormality noncomodomal papules primarily on the upper right lip without any active discharge with scabbing consistent with HSV Neck: normal visual inspection Respiratory: normal respiratory effort, lungs clear to auscultation normal respiratory effort; no respiratory distress Auscultation: lungs clear to auscultation bilaterally Cardiovascular: Rate/Rhythm: regular rate and regular rhythm Heart Sounds: normal S1 and normal S2; no murmur Musculoskeletal: Incision site on the right hip without discharge or swelling. Mild erythema around dressing consistent with irritation from bandage adhesive. No leg edema. Skin: no rashes, warm and dry Psychiatric: A+Ox3, euthymic affect Orientation: alert and oriented x 3 Results & Data Vital Signs (Past 12 Hours) Vital Signs Temp Pulse Resp BP Pulse Ox O2 Del Method 12/01/23 07:06 37.0 C 83 16 147/85 H 97 Room Air
--- NOTE | 2023-12-01 17:52 | Discharge Summary ---
"Date of Service December 01, 2023 Admission HPI Per Admitting Provider Sandee is a 53 year old female w/ PmHx palpitations, low back pain, s/p total hip replacement coming in for sudden onset R groin pain. Patient states that she had a total hip replacement of the R hip around 6 weeks ago that went well. She had done physical therapy for 2 weeks and did the exercises at home thereafter. Around 8PM last night she developed sudden onset R groin pain present at the mid to medial R leg/groin, sharp and intense in nature. She denies the pain radiating however the pain is constant for her. She developed nausea with this pain as well but no vomiting. She states that her lower back pain had improved after the surgery and everything had been going well, denies any trauma or weird movements prior to or at the time that this occurred. She denies any fevers, chills, diarrhea, constipation, dysuria, urinary frequency, urinary incontinence, hematuria, melena or stool irregularities, stool incontinence, numbness at the peripheral extremities. She states she is unable to move her leg very well as it feels like a limp leg along with the large amount of pain. In terms of her medications she had been taking gabapentin for her lower back pain prior to the surgery. She had also been taking metoprolol tartrate prior to the surgery however denies having atrial fibrillation, the medication was stated as for fast heart rate and irregular sensation. In the ER WBC 15.15, Hgb 12.5, neutrophil 12.03, Lactate 3.5, magnesium 1.6, CRP 2.71. XR hip and pelvis showed intact total right hip arthroplasty, no fractures within the pelvis or hips. She was given 1L NSS, fentanyl x1 without relief, di laudid 1mg x3, vancomycin. Admission Exam Per Admitting Provider Constitutional: WD/WN, vitals as above + obese Eyes: PERRL, conjunctivae normal, anicteric sclerae ENMT: external ear and nose normal, oropharynx normal Respiratory: normal respiratory effort, lungs clear to auscultation Cardiovascular: Rate/Rhythm: regular rate and regular rhythm Heart Sounds: normal S1, normal S2 and + murmur (II/ holosystolic murmur best heard at the left sternal border. ) Peripheral pulses 2+ at the bilateral lower extremities. Musculoskeletal: Patient with 5/5 strength with dorsiflexion and plantar flexion of the R foot, unable to move R leg at the knee or hip very much due to pain. Skin: Incision at the R hip in tact, dry, non-erythematous, small few mm size scab without active discharge at the anterior distal portion of the scar. No tenderness to palpation at the incision site. Neurologic: Sensation in tact bilaterally at the lower extremities. Psychiatric: A+Ox3, euthymic affect Lymphatic: No cervical or inguinal lymphadenopathy. Principal Diagnosis gram positive bacteremia Discharge Exam Constitutional WD/WN, vitals as above Eyes + anicteric sclerae; no conjunctival abnormality ENMT Ears: no external ear abnormality Nose: no external nose abnormality Respiratory normal respiratory effort, lungs clear to auscultation Cardiovascular Rate/Rhythm: regular rate and regular rhythm Skin no rashes, warm and dry (cold sores present around mouth) Psychiatric A+Ox3, euthymic affect Discharge Data Allergies Allergy/AdvReac Type Severity Reaction Status Date / Time amoxicillin Allergy Hives Verified 11/25/23 07:11 Penicillins Allergy Hives Verified 11/25/23 07:11 Consultations 11/25/23 08:27 ED Decision to Admit Stat 11/25/23 15:40 Consult Orthopedic Surgery Routine 11/26/23 07:38 Consult Infectious Diseases Routine Procedures Performed Operation Date: 11/26/23 09:35 Actual Procedures p Right Hip Incision and Drainage(Right) - Rommel Lester DO s Femoral head, Poly Exchange(Right) - Rommel Lester DO Ordered Studies 11/26/23 14:20 IR aspinj mjr jnt sh,hip,kn RT Routine Hip/Pelvis X-Ray 11/25/23 06:00 XR hip RT 2V w pelvis CLINICAL HISTORY: severe right hip pain; no trauma COMPARISON: Right hip MRI July 02, 2023. FINDINGS: Right hip arthroplasty is intact. There is no periprosthetic fracture or lucency. There is an acetabular screw. No fractures within the pelvis or hips are identified. There are no osseous lesions. Suspected tubal ligation clips are present. Left pelvic calcification favors a phlebolith. IMPRESSION: 1. Intact total right hip arthroplasty. No periprosthetic fracture or lucency. 2. No fractures within the pelvis or hips. ACT 112: Negative or not required by law. Electronically signed by: Danyel Gutierrez M.D. 11/25/2023 7:14 AM Joint Aspiration/Injection 11/26/23 14:20 Ultrasound guided right hip fluid collection aspiration INDICATION: Severe right hip pain; rule out infection PROCEDURE: Procedure and risks were explained. Informed consent was obtained. A final timeout was completed. Preprocedure ultrasound scanning demonstrated a complex fluid collection at the lateral right hip/thigh. The right lateral hip/thigh was prepped and draped in sterile fashion. 1% lidocaine was utilized for skin anesthesia. Utilizing ultrasound guidance, a 5 [place] safety centesis catheter was advanced into the right lateral hip/thigh complex fluid collection. Ultrasound images were obtained. Approximately 100 mL of purulent fluid was aspirated and sent to lab for analysis. The catheter was removed and Band-Aid applied. The patient tolerated the procedure well. IMPRESSION: Right hip aspiration as detailed above. Performed, dictated, and signed by Dom Chang PA-C; to be co-signed by Dr. Rommel Murillo. Electronically signed by: Rommel Murillo M.D. 11/26/2023 3:05 PM Hospital Course (1) Right groin pain: 53 year old female w/ PmHx palpitations, low back pain, s/p R total hip replacement admitted for R groin pain. R Groin Pain | Gram Positive Bacteremia Pain sudden in onset, focused at the mid to medial groin, no loss of sensation, distal strength, incontinence. Patient is s/p R hip replacement 6 weeks, incision site well healed, no discharge or tenderness. XR of the femur negative for any acute bony abnormalities. Blood cultures growing staphylococcus. ID Consulted, appreciate recommendation. TTE completed, no signs of vegetations. -Orthopedics completed I&D and hardware exchange 11/27, will follow up with patient 10-14 days after discharge -Per ID recommendation - continue Cefazolin + Rifampin x 6 weeks. 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 -After completion of 6 weeks of cefazolin + rifampin, switch to doxycycline 100 mg PO BID PLUS rifampin 300 mg PO BID x 3 months. Subsequently, stop rifampin and continue doxycycline for at least 1 year. Following 1 year, can consider extending doxycycline for the life of the retained hardware -Set up for home IV antibiotics with 'Chart well', as well weekly CBC with diff, CMP and weekly -PICC line placed -Tramadol, Tylenol for pain control at discharge Heart Palpitations -History of heart palpitations, irregular sensation. EKG without any evidence of A fib. -Patient specified takes metoprolol for heart rate control. 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 Discharge Plan Discharge Items Patient Disposition: Home - Home Health Services Reason For Visit: GROIN PAIN Discharge Diagnosis: gram positive bacteremia Activity: Per Instructions section Non-emergency contact: Primary Care Provider and Specialist Call non-emergency contact if: you have any medication questions and your symptoms worsen Follow-up/Referrals: [facility] ([facility] [Outside] - 12/07/23 8:30 am (Labs and PICC dressing change) Sj Milner PA-C [Primary Care Provider] - 12/08/23 11:30 am (please schedule hospital discharge follow up appointment within 1 week) Rommel Lester DO [Surgeon] - 12/10/23 1:15 pm Diet: Regular Addtl Attending Provider Instructions: You were admitted to the hospital for groin pain, found to have gram positive bacteremia. You were treated with incision and drainage of the hip as well as poly exchange. Infectious disease was consulted and provided recommendations for your antibiotic course which will include 6 weeks of IV Cefazolin and A discharge summary will be sent to your primary care physician to ensure continuity of care. Please bring this discharge summary with you to your next office appointment so that your provider can review it at that time. Follow-up appointments: Make a follow-up appointment with your PCP within the next week. It is very important that you follow up with them shortly after discharge from the hospital. You should also call for follow-up with Dr Lester appointment within 10-14 days, call [phone] for appt or with question/concerns * You have an appt on Thursday, December 07, 2023 at 8:30am for labs and PICC dressing change at [facility]. Keep all your follow-up appointments as already scheduled. If you cannot make an appointment, notify your provider. Medications: Your medication list has been reviewed and reconciled upon discharge to ensure accuracy and continuity of care. An updated list of all your medications is included with your hospital discharge paperwork. Please review this list closely, and make note of any changes. -We sent a new medication called Rifampin to your pharmacy. Take Rifampin 300mg twice daily until 01/07/24 -We also sent a new prescription for Valcyclovir 1g twice daily for 7 days. This is further anti-viral treatment for your cold sores. -You will continue to receive Cefazolin 2mg IV q8h until 01/07/24 -Per the infectious disease doctor, after 01/07/24 we anticipate switch to doxycycline 100 mg PO BID (given penicillin/amoxicillin allergy) PLUS rifampin 300 mg PO BID x 3 months. Subsequently, stop rifampin and continue doxycycline for at least 1 year. Following 1 year, can consider extending doxycycline for the life of the retained hardware if pt is tolerating well, after risk/benefit discussion. Please follow up with your PCP to discuss the plan for ongoing antibiotics. CALL 911 OR GO TO THE EMERGENCY DEPARTMENT if you experience any of the following: Sudden, severe abdominal pain or nausea/vomiting Severe chest pain, or chest pain that radiates (moves) to your jaw or arm Sudden, severe shortness of breath or difficulty breathing Thank you for allowing us to participate in your care. Addtl Electric Crane Operator Provider Instructions: May shower upon discharge if wound dry; may leave wound open to air if dry or apply light dressing as needed; frequent ice to hip area; light daily activities, ambulation, etc; follow-up with Dr Lester ~ 10-14 days, call [phone] for appt or with question/concerns Pending Studies at Discharge: No Stand-Alone Forms: My [employer], Smoking Cessation Medications and DC Order Prescriptions: New rifampin 300 mg Capsule 300 mg PO BID 37 Days Qty: 74 0RF acetaminophen 325 mg Tablet 650 mg PO TID PRNQty: 0 0RF valacyclovir 1 gram tablet 1,000 mg PO BID 7 Days Qty: 14 0RF Continued celecoxib 200 mg capsule 200 mg PO BID aspirin 81 mg tablet,delayed release (DR/EC) 81 mg PO BID tramadol 50 mg tablet 50 mg PO Q4H PRN (Reason: Pain, Moderate) gabapentin 300 mg capsule 300 mg PO TID PRN (Reason: Pain (Scale Score 4-6)) metoprolol tartrate 25 mg tablet 25 mg PO BID Discharge Orders: Discharge Order (Routine); Ordered 12/01/23 Ordered By: Nehemiah Tavarez Admission Data Admit Date/Time: 11/25/23 09:01 Attending Provider: Jesenia Johnston Admit Provider: Nehemiah Tavarez Primary Care Provider: Sj Milner Other Providers: China Ascencio; Pamela Bower; Garrett Helm; Adelina Pierre; Jaqueline Alvares; Tia Gilmore; Yane Larsen; Nithya Mcgrath; Rommel Lester; Luis Izquierdo Other Interventions: Discharge Summary Assessment (RN) Last Done: 12/01/23 14:11 Supervising Physician Co-Signing Physician Notes Attending Physician Supervision Note: I independently interviewed and examined the patient and verified the hoyos history and physical, reviewed labs and image studies and agree with findings and care plan noted above. walked 2 laps yesterday. right hip was feeling sore this am. tramadol helped. Vitals noted, in general she is awake and alert pleasant no distress. HEENT normocephalic atraumatic mucous membranes moist. herpetic type cold sore outbreak on upper lip and the lateral side of her nose. Breathing unlabored no accessory muscle use good effort. Skin - no rashes no pallor or icterus. Neuro without focal deficits. septic hip, staph aureus bacteremia - ?source - ? skin source. hip with few staph aureus - likely post bacteremia seeding than the primary source. 2D echo - No vegetation. -Now status post washout. -abx regimen as above. PICC line placed. weekly labs. 'Chart well to administer home abx and lab draw' -tramadol rx sent for pain control. Cold sore - Valtrex to hasten resolution of cold sores."
== END 2023-12-01 16:54 | disposition home or self-care (01) | DRG 467 ==
LOC: ED 05:21 → SUATTDRO 09:01 → EDINP 09:01 → 2W 11:00 → 3E 11-29 14:37
PROC: M.IDHIP (2023-11-26 09:35)
DX: R78.81 Bacteremia; T84.51XA Infection and inflammatory reaction due to internal right hip prosthesis, initial encounter; L08.9 Local infection of the skin and subcutaneous tissue, unspecified; Y83.1 Surgical operation with implant of artificial internal device as the cause of abnormal reaction of the patient, or of later complication, without mention of misadventure at the time of the procedure; Z88.0 Allergy status to penicillin; I10 Essential (primary) hypertension; B95.61 Methicillin susceptible Staphylococcus aureus infection as the cause of diseases classified elsewhere; R00.2 Palpitations; G89.29 Other chronic pain; Z79.82 Long term (current) use of aspirin; M00.051 Staphylococcal arthritis, right hip; B00.1 Herpesviral vesicular dermatitis; Z96.641 Presence of right artificial hip joint; M54.59 Other low back pain; Z79.899 Other long term (current) drug therapy